=== PATIENT | female | born 1985 | race Caucasian/White ===

== ENCOUNTER 2020-07-16 08:04 | Outpatient (CLI) | payer OTHER, SELFPAY | END 2020-07-16 08:05 | disposition home or self-care (01) | LOC: ANHAUDIO 08:07 | PROVIDERS: PCP Nurse Practitioner Family; Visit Provider Nurse Practitioner Family | DX: H90.3 Sensorineural hearing loss, bilateral (principal) | CPT/HCPCS: 92537; 92540; 92546; 92557; 92567 ==

== ENCOUNTER 2024-06-17 08:46 | Outpatient (CLI) | payer OTHER, SELFPAY ==
--- OUTSIDE RECORDS SUMMARY | 2024-06-17 09:02 | XMS_ITS | Encounter Summary ---
Author Organization [facility] Address [address] [place] [address] Phone Care Team Providers Care Fitness Professional Name Role Phone Yolie Norma PINEDA, HAIR PREPARER Primary Care Provider [phone] Sadie Pruitt APRN, HAIR PREPARER Unavailable [phone] Encounter Details Date Type Department Care Team (Late st Contact Info) Description 07/22/2020 [facility] [address] [place] [id number] David Moore, DO [address] [place] [address] Pre-op testing (Primary Dx) Social History Tobacco Use Types Packs/Day Years Used Date Smoking Tobacco: Never Smokeless Tobacco: Never Alcohol Use Standard Drinks/Week Comments No 0 (1 standard drink = 0.6 oz pur e alcohol) Sexually Active Control Partners Comments Yes Comments No Sex and Gender Information Value Date Recorded Sex Assigned at Not on file Legal Sex Female 9:11 PM CDT Gender Identity Not on file Sexual Orientation Not on file COVID-19 Exposure Response Date Recorded In the last month, have you been in contact with someone who was confirmed or suspected to have Coronavirus / COVID-19? No / Unsure 07/21/2020 1:04 PM [facility] [employer] documented as of this encounter Plan of Treatment Not on file documented as of this encounter Results * (ABNORMAL) HEMOGLOBIN & HEMATOCRIT (H&H) (08/06/2020 8:42 AM CDT) HEMOGLOBIN (HGB) 11.8(L) 12.0 - 15.8 g/dL 08/06/2020 9:04 AM CDT [facility] HEMATOCRIT (HCT) 36.5 36.0 - 47.0 % 08/06/2020 9:04 AM CDT [facility] Blood Venipuncture / Unknown 08/06/2020 8:42 AM CDT 08/06/2020 9:02 AM CDT David Moore DO HEMATOLOGY ORDERABL ES Final Result [facility] [place] [address] documented in this encounter Visit Diagnoses Diagnosis Pre-op testing- Primary Preoperative examination, unspecified documented in this encounter Additional Health Concerns Infection Onset Date Last Indicated Resolved Time COVID - 19 01/05/2021 01/05/2021 01/25/2021 12:1 6 AM CDT C. difficile Rule-Out 03/14/2021 03/14/20212020 12:16 AM CDT COVID - 19 09/04/2021 09/04/2021 09/24/2021 12:1 6 AM CDT COVID - 19 Confirmed 11/22/2021 11/22/2021 022 12:16 AM CDT COVID - 19 04/16/2022 04/16/2022 04/26/2022 12:1 6 AM [facility] COVID - 19 06/26/2023 06/26/2023 06/26/2023 3:16 PM [facility] [employer] COVID - 19 Confirmed 06/26/2023 06/26/2023 024 12:16 AM [facility] [employer] documented as of this encounter Care Teams Fitness Professional Relationship Specialty Start Date End Date Norma Urbano, DIRECTOR GLOBAL DEVELOPMENT, HAIR PREPARER [address] [place] [address] PCP - General Family Medicine 08/07/18 Sadie Pruitt APRN, HAIR PREPARER #[address] [facility], [address] [place] [address] Nurse Practitioner Cardiology 07/20/23 documented as of this encounter
--- OUTSIDE RECORDS SUMMARY | 2024-06-17 09:02 | XMS_ITS | Referral Summary ---
Author Organization [facility] Address [address] [place] [address] Care Team Providers Care Income Tax Adjuster Name Role Phone YolieRaphaelNormashelia Freedman NP Primary Care Provider Encounters Date Type Department Care Team Description 05/27/2024 1:35 PM TOBACCO CURER Lab [address] Moderate persistent asthma without complication 05/27/2024 1:00 PM TOBACCO CURER Office Visit [facility] at [address] [place] [id number] Bakari Salinas DO Moderate persistent asthma without complication (Primary Dx); Chronic rhinosinusitis; Opacities of both lungs present on chest x-ray; Class 3 severe obesity due to excess calories with body mass index (BMI) of 60.0 to 69.9 in adult, unspecified whether serious comorbidity present (HCC) 04/16/2024 10:00 AM TOBACCO CURER Ancillary Procedure [facility] 04/16/2024 12:20 PM TOBACCO CURER Ancillary Procedure [facility] 04/13/2024 5:25 PM TOBACCO CURER Ancillary Procedure [facility] 03/27/2024 4:59 PM TOBACCO CURER - 03/27/2024 11:59 PM TOBACCO CURER Hospital Encounter [facility] [address] [place] [id number] Chronic cough Discharge Disposition: Discharge to home or self care from Last 3 Months Allergies Active Allergy Reactions Criticality Noted Date Comments Adhesive Hives,Itching,Rash Medium 11/30/2021 Hydroflex tape specifically Note: SKIN GETS RED, ITCHY AND BUBBLES UP Lamotrigine Hives,Itching,Rash Medium 10/05/2022 Note: DIZZINESS AND BLISTERS ON SCALP WHEN TAKING 25MG/DAY Silver Rash,Hives Medium 04/07/2015 Medications cholecalcifero l (VITAMIN D-3) 50,000 unit capsule Take 50,000 Units by mouth once a week. Active cetirizine (ZyrTEC) 10 mg tablet Take 1 tablet (10 mg total) by mouth daily 1 Active fluticasone propionate (FLONASE) 50 mcg/actuation nasal spray 1 Active albuterol HFA (PROVENTIL HFA,VENTOLIN HFA,PROAIR HFA) 90 mcg/actuation inhaler Inhale 2 puffs every 6 (six) hours as needed 7 Active albuterol 2.5 mg /3 mL (0.083 %) nebulizer solution albuterol sulfate 2.5 mg/3 mL (0.083 %) solution for nebulization Active pantoprazole DR (PROTONIX) 40 mg EC tablet 2 (two) times a day before breakfast and dinner 2 Active topiramate (TOPAMAX) 100 mg tablet topiramate 100 mg tablet TAKE 1 TABLET BY MOUTH TWICE DAILY Active traZODone (DESYREL) 100 mg tablet TAKE 1 AND 1/2 TABLETS BY MOUTH EVERY DAY AT BEDTIME 2 Active FLUoxetine (PROzac) 20 mg capsule 2 Active acetaminophen (TYLENOL) 325 mg tablet Take 2 tablets (650 mg total) by mouth every 6 (six) hours as needed 2 Active atenoloL (TENORMIN) 50 mg tablet Take 1 tablet (50 mg total) by mouth daily 2 Active cyclobenzaprin e (FLEXERIL) 10 mg tablet Take 1 tablet (10 mg total) by mouth daily as needed for muscle spasms 3 Active ARIPiprazole (ABILIFY) 5 mg tablet Take 1 tablet (5 mg total) by mouth daily Active celecoxib (CeleBREX) 100 mg capsule Take 1 capsule (100 mg total) by mouth 2 (two) times a day Active Victoza 3-Rajeev 0.6 mg/0.1 mL (18 mg/3 mL) injection Inject 1.8 mg under the skin daily Active montelukast (SINGULAIR) 10 mg tablet Take 1 tablet (10 mg total) by mouth nightly at bedtime Active ondansetron (ZOFRAN) 8 mg tablet Take 1 tablet (8 mg total) by mouth 2 (two) times a day as needed for nausea or vomiting 3 Active TRUEplus Pen Needle 31 gauge x 3/16 needle 3 Active prazosin (MINIPRESS) 2 mg capsule Take 1 capsule (2 mg total) by mouth nightly 3 Active pregabalin (LYRICA) 150 mg capsule Take 1 capsule (150 mg total) by mouth 2 (two) times a day Active amoxicillin 500 mg capsule Take 1 tablet/capsule (500 mg total) by mouth 3 (three) times a day [address] (CYMBALTA) 30 mg capsule Take 1 capsule (30 mg total) by mouth 2 (two) times a day 4 Active polyethylene glycol (MIRALAX) 17 gram/dose bulk powder Take 17 g by mouth as needed 4 Active traMADoL (ULTRAM) 50 mg tablet Take 1 tablet (50 mg total) by mouth every 8 (eight) hours as needed for pain 4 Active ARIPiprazole (ABILIFY) 2 mg tablet Take 1 tablet (2 mg total) by mouth daily 4 Active budesonide-for moteroL (SYMBICORT) 160-4.5 mcg/actuation inhaler Inhale 2 puffs 2 (two) times a day Rinse mouth with water after use. Do not swallow. 1 each 11 5 026 Active inhalational spacing device spacer 1 each daily 1 each 5 Active venlafaxine XR (EFFEXOR-XR) 150 mg 24 hr capsule Take 1 capsule (150 mg total) by mouth daily 0 025 Discontin ued(Alter nahid therapy) Active Problems Problem Noted Date Diagnosed Date Chronic rhinosinusitis 05/27/2024 Moderate persistent asthma without complication 05/27/2024 Class 3 severe obesity due t o excess calories with body mass index (BMI) of 60.0 to 69.9 in adult 05/27/2024 Heartburn 09/30/2021 Overview (09/30/2021): Added automatically from request for surgery [id number] Chronic pain in left shoulder 08/24/2020 Insomnia secondary to chronic pain 08/24/2020 Left arm weakness 08/24/2020 2-part displaced fracture of surgical neck of left humerus, initial encounter for closed fracture 11/29/2018 Vasovagal syncope 11/29/2018 Closed displaced oblique fracture of shaft of le ft humerus 11/29/2018 Migraine without aura and wi th status migrainosus, not intractable 08/16/2018 Anxiety disorder 08/16/2018 Depression 08/16/2018 Gastroesophageal reflux disease without esophagi tis 06/06/2018 Vitamin D deficiency 06/06/2018 Morbid obesity with BMI of 60.0-69.9, adult ([facility]) 02/14/2017 Assessment & Plan (03/09/2022 11:30 AM CDT): Continue to work with physical therapy on activities she can do at home. Continue small frequent meals, trying to avoid carbohydrates and increasing protein intake. We will encourage her to attend the monthly support group sessions. We will see her back at 1 month to reassess her progress Assessment & Plan (02/09/2022 9:23 AM CDT): We have discussed with the patient that as she is extremely limited by her mobility the only way she will lose weight will be with dietary modification. We have discussed keeping a food journal which she has done as recommended by the dietitian. She states she is only taking in a 1000 calories a day. We then discussed timing of eating. She states that she is not eating late at night and she is spacing these calories out throughout the day. She is been told that the stress from these recent events has been what made her gain all of the weight. Stress hormones may play a role but only taking in 1000 calories in a day makes it quite unlikely to be able to gain 15 lb. We will see her back next month to reassess. Assessment & Plan (10/25/2021 9:12 AM CDT): We have given her the preoperative diet and asked her to try and do this for at least a week during the month of October. Hopefully also now that the phentermine has been stopped for some time this will Stablize the weight regain and allow her to lose over the next month. We will see her back in November to reassess. Assessment & Plan (09/21/2021 8:00 AM CDT): We discussed we are still shooting for her to be at a BMI of under 60 prior to surgery. This shows her committed effort during her work up to ensure she is making appropriate lifestyle changes now so that she may continue them after surgery. We will see her back next month to reassess. Assessment & Plan (08/23/2021 2:40 PM CDT): The patient has done well the past 2 months having lost 13 lb. As we have talked with the patient before would like to see her BMI under 60. She will continue to work with the dietitian as we issue for this goal. Once this is the case we will then set her up for sleeve gastrectomy. Assessment & Plan (07/26/2021 11:36 AM TOBACCO CURER): The patient has done extremely well having lost 11 lb since last visit. Even though this is month 6 we discussed at the beginning that we want to see her BMI under 60 prior to surgery. She is in agreement and wants to continue to work on things to give her the best success after surgery. Continue her recent exercise regimen as she seen the success that she has had with it. Continue to make conscious efforts on meal selections. We will see her back next month to reassess. Assessment & Plan (06/30/2021 9:36 AM TOBACCO CURER): It seems like the patient has noticed her size getting smaller so it is always possible that she initially has been replacing some of the fat with muscle mass that does weigh more. We discussed not getting discouraged because any exercise she is doing will only help her long-term. Continue following the dietitians recommendations. We will see her back next month to reassess. Assessment & Plan (06/02/2021 9:12 AM TOBACCO CURER): She has consistently lost weight throughout these 1st few months. We again have talked about seen her BMI get below 60 prior to surgery. She is motivated and has a goal and site for herself. Even if it takes an extra month or so she was fine with that as long as she continues to make good progress going forward. Continue to work with the dietitian. She found some of the exercises quite useful when she just saw physical therapy recently. She will continue to work on these exercises as well. We will see her next month. Assessment & Plan (05/03/2021 10:36 AM TOBACCO CURER): Continue small frequent meals. Continue exercise regimen. Patient continues to show steady weight loss. I have discussed again that we still would like to see her BMI under 60 prior to intervention. She is in understanding. We will see her back next month Assessment & Plan (04/05/2021 10:48 AM TOBACCO CURER): The patient has done extremely well having lost 9 lb since last visit. I still believe the bypass is the better option for her but she wants to continue to see how she does with weight loss and her reflux. I again went to see her with a BMI under 60 and with no reflux symptoms off of medication to even consider proceeding. She continues to be in understanding. She will continue to exercise as tolerates and watching oral intake. Assessment & Plan (03/08/2021 8:59 AM CDT): Given their comorbidities and obesity the patient would be a good candidate for weight loss surgery. We have gone over options such as the bypass and sleeve gastrectomy. We have also discussed risks and benefits such as blood clots, staple line leak as well as new or worsening reflux symptoms. They are in understanding. Given her BMI over 60 and her reflux I do not think that the sleeve is a good option for her. However she is hesitant to go to [facility] as she does not have a ride and this would mean her would have to take off work. She would like to try and lose weight to get her BMI under 60. During that time frame if with the weight loss she is able to come off of her medication for reflux without any breakthrough symptoms I will consider doing a sleeve. She is in agreement. If however despite weight loss she still requires anti-reflux medication or she is unable to lose below 60 we will make a referral down town. During this time will have them seen by the dietitian and psych. As we get closer to the time of surgery we will set him up for an EGD to look for hiatal hernia, H pylori or other gastric pathology. We will see them back in 4 weeks. They are in understanding of the plan. We have gone over small frequent meals shooting for a goal calorie intake of around 1600 spread throughout 4-5 meals. We have discussed not eating late at night. We have discussed cardiovascular exercise. Greater than 15 minutes was spent in counseling the patient on diet and exercise with regards to her morbid obesity. Assessment & Plan (02/14/2017 6:17 PM CDT): Encourage a weight loss program such as Weight Watchers incorporating dietary changes and aerobic / weight-bearing exercise at least 4-5 times per week, for at least 30-45 minute sessions. Chronic migraine without aura 07/20/2016 Overview (10/13/2016): Chronic migraine without aura Benign hypertension 04/27/2008 Overview (08/24/2016): Benign Hypertension Assessment & Plan (05/03/2021 10:36 AM TOBACCO CURER): Continue current medical regimen Assessment & Plan (03/08/2021 9:00 AM CDT): Continue current medical regimen Atopic rhinitis 04/27/2008 Overview (08/24/2016): Allergic Rhinitis NOS Resolved Problems Problem Noted Date Diagnosed Date Resolved Date Morbid obesity ([facility]) 04/27/200804/2022 Overview (08/24/2016): MORBID OBESITY Assessment & Plan (12/13/2021 2:57 PM CDT): Given the discomfort she is having with her shoulder this will take priority. Will follow-up on her evaluation with Orthopedics. If they deem surgery is necessary we will just continue to see her on a monthly basis until they clear her for her sleeve gastrectomy. She is in understanding. Immunizations Name Administration Dates Next Due Hep B, Adolescent or Pediatric 06/03/1997 Influenza, Quadrivalent, Spl it, Intramuscular 02/24/2021,06/07/2018,03/07/2016 Influenza, Trivalent, IM (MDV) 03/30/2015 Social History Tobacco Use Types Packs/Day Years Used Date Smoking Tobacco: Never Cigarettes Smokeless Tobacco: Never Tobacco Cessation:Counseling Given: Not Answered Alcohol Use Standard Drinks/Week Comments No 0 (1 standard drink = 0.6 oz pur e alcohol) PHQ-2 Answer Date Recorded PHQ-2 Total Score (If total score is 3 or more points, staff should administer the PHQ-9) 4 08/24/2020 Comments No Sex and Gender Information Value Date Recorded Sex Assigned at Not on file Legal Sex Female 7:59 PM TOBACCO CURER Gender Identity Not on file Sexual Orientation Straight 11/28/2019 3: 40 PM CDT Occupation Industry Job Start Date Job End Date None Not on file Not on file Not on file Last Filed Vital Signs Vital Sign Reading Time Taken Comments Blood Pressure 159/108 05/27/2024 12:46 PM TOBACCO CURER Pulse 80 05/27/2024 12:46 PM TOBACCO CURER Temperature 36.2 ??C (97.2 ??F) 05/27/2024 12:[address] Respiratory Rate 18 01/30/2022 9:38 AM CDT Oxygen Saturation 98% 05/27/2024 12:46 PM TOBACCO CURER Inhaled Oxygen Concentration - - Weight 176 kg (388 lb 1.6 oz) 05/27/2024 12:46 P M TOBACCO CURER Height 170.2 cm (5' 7 ) 05/27/2024 12:46 PM TOBACCO CURER Body Mass Index 60.79 05/27/2024 12:46 PM TOBACCO CURER Plan of Treatment Not on file Procedures Procedure Name Priority Date/Time Associated Diagnosis Comments DIFFERENTIAL AUTO Routine 05/27/2024 1:3 1 PM TOBACCO CURER Moderate persistent asthma without complication CBC WITH AUTO DIFFERENTIAL Routine 05/27/2024 1:31 PM TOBACCO CURER Moderate persistent asthma without complication IGE Routine 05/27/2024 1:31 PM TOBACCO CURER Moderate persistent asthma without complication CT BODY OUTSIDE REFERENCE Routine 04/16/2024 12:20 PM TOBACCO CURER XR TRANSFER OF OUTSIDE FILMS Routine 04/16/2024 10:00 AM TOBACCO CURER XR TRANSFER OF OUTSIDE FILMS Routine 04/13/2024 5:25 PM TOBACCO CURER XR CHEST PA LATERAL 2 VIEWS Schedule MARIAA, Read MARIAA (Appt Today, Awaiting Results) 03/27/2024 5:04 PM TOBACCO CURER Chronic cough PAP AND HIGH RISK HPV, REFLEX TO GENOTYPING Routine 02/20/2023 11:10 AM CDT Screening for malignant neoplasm of the cervix from Last 3 Months or Most Recently Relevant to Health Maintenance Results * Differential, auto (05/27/2024 1:31 PM TOBACCO CURER) Neutrophil abs 5.0 1.5 - 6.5 K/cumm Imm gran abs 0.0 0.0 - 0.1 K/cumm [facility] Lymphocyte abs 2.7 0.8 - 3.3 K/cumm [facility] Monocyte abs 0.5 0.2 - 0.8 K/cumm [facility] Eosinophil abs 0.2 0.0 - 0.5 K/cumm [facility] Basophil abs 0.1 0.0 - 0.1 K/cumm [facility] Neutrophil pct 58.7 % [facility] Comment: Interpretive Data Percent cell count reference ranges are not reported, since discordance with absolute values may lead to misinterpretation of CBC data. Current Interpretive Data was last revised on 2017. Imm gran pct 0.4 % [facility] Comment: Interpretive Data Percent cell count reference ranges are not reported, since discordance with absolute values may lead to misinterpretation of CBC data. Current Interpretive Data was last revised on 2017. Lymphocyte pct 32.1 % [facility] Comment: Interpretive Data Percent cell count reference ranges are not reported, since discordance with absolute values may lead to misinterpretation of CBC data. Current Interpretive Data was last revised on 2017. Monocyte pct 5.3 % [facility] Comment: Interpretive Data Percent cell count reference ranges are not reported, since discordance with absolute values may lead to misinterpretation of CBC data. Current Interpretive Data was last revised on 2017. Eosinophil pct 2.4 % [facility] Comment: Interpretive Data Percent cell count reference ranges are not reported, since discordance with absolute values may lead to misinterpretation of CBC data. Current Interpretive Data was last revised on 2017. Basophil pct 1.1 % [facility] Comment: Interpretive Data Percent cell count reference ranges are not reported, since discordance with absolute values may lead to misinterpretation of CBC data. Current Interpretive Data was last revised on 2017. Blood 05/27/2024 1:31 PM TOBACCO CURER 05/27/2024 3:50 PM TOBACCO CURER Bakari Salinas DO LAB BLOOD ORDERABLES Rosa l Result [facility] [address] [facility] Department of Laboratories [place], [place] [id number] * CBC with auto differential (05/27/2024 1:31 PM TOBACCO CURER) WBC 8.5 3.8 - 9.9 K/cumm Hgb 13.7 11.9 - 15.5 g/dL [facility] Hct 40.6 35.6 - 45.5 % [facility] Plt 372 150 - 400 K/cumm [facility] MPV 9.6 9.1 - 12.3 fL [facility] RBC 4.67 3.90 - 5.20 M/cumm [facility] MCV 86.9 81.3 - 96.4 fL [facility] MCH 29.3 27.1 - 33.3 pg [facility] MCHC 33.7 32.3 - 35.7 g/dL [facility] RDW CV 13.7 11.1 - 14.9 % [facility] RDW SD 43.2 35.7 - 48.1 fL [facility] NRBC abs 0.00 0.00 - 0.01 K/cumm [facility] Blood 05/27/2024 1:31 PM TOBACCO CURER 05/27/2024 3:50 PM TOBACCO CURER us Bakari Salinas DO LAB BLOOD ORDERABLES Rosa l Result Performing Organization Address City/[facility] Co de Phone Number [facility] ([place]) 1 [facility] [place] [address] * IgE (05/27/2024 1:31 PM TOBACCO CURER) IgE 8 <=100 IUnits/mL Comment:Testing performed by : [facility], [address] [place] [address] Blood 05/27/2024 1:31 PM TOBACCO CURER 05/27/2024 6:16 PM TOBACCO CURER us Bakari Salinas DO LAB BLOOD ORDERABLES Rosa l Result Performing Organization Address [facility] de Phone Number LETITIA [facility] ([place]) 1 [facility] [place] [address] * CT Body Outside Reference (04/16/2024 12:20 PM TOBACCO CURER) Narrative [facility] - 05/20/2024 10:59 AM TOBACCO CURER This order has been auto-finalized and does not contain a result. us Not In File Miscellaneous IMG CT PROCEDURES Rosa l Result Performing Organization Address [facility] Co de Phone Number [facility] * XR Outside Reference (04/16/2024 10:00 AM TOBACCO CURER) Narrative [facility] - 05/20/2024 11:00 AM TOBACCO CURER This order has been auto-finalized and does not contain a result. us Not In File Miscellaneous IMG XR PROCEDURES Rosa l Result Performing Organization Address [facility] Co de Phone Number [facility] * XR Outside Reference (04/13/2024 5:25 PM TOBACCO CURER) Narrative [facility] - 05/20/2024 11:03 AM TOBACCO CURER This order has been auto-finalized and does not contain a result. us Not In File Miscellaneous IMG XR PROCEDURES Rosa l Result Performing Organization Address [facility] de Phone Number [facility] * XR Chest Pa Lateral 2 Views (03/27/2024 5:04 PM TOBACCO CURER) Anatomical Region Laterality Modality Body, Chest N/A Computed Radiogr aphy 03/27/2024 7:38 PM TOBACCO CURER Narrative 03/27/2024 7:39 PM TOBACCO CURER EXAM DESCRIPTION: XR CHEST PA LATERAL 2 VIEWS REASON FOR STUDY: cough ?? Cough , SOB, chest pain x 5 days ??H/o asthma ?? TECHNIQUE: There are 2 ??radiographic view(s) of the chest. COMPARISON: Prior exam 10/04/2021 FINDINGS: LUNGS: ??Pulmonary vascularity appears normal. ??No confluent infiltrate or effusion. ??Costophrenic angles are sharp. ?? HEART/MEDIASTINUM: ??Cardiac silhouette normal in size. Mediastinal and hilar contours appear normal. LINES/TUBES: ??None. BONES: ??Mild spondylosis thoracic spine. IMPRESSION: No acute cardiopulmonary abnormality. THIS IS AN ELECTRONICALLY VERIFIED FINAL REPORT 03/27/2024 7:39 PM - Electronically signed by ??Rivas Paulson M.D. MJ: EMILY D: ??03/27/2024 7:39 PM T: ??03/27/2024 7:39 PM Report ID: [id number] Reading Location: ??[id number] Procedure Note Rivas Paulson MD - 03/27/2024 EXAM DESCRIPTION: XR CHEST PA LATERAL 2 VIEWS REASON FOR STUDY: cough Cough , SOB, chest pain x 5 days H/o asthma TECHNIQUE: There are 2 radiographic view(s) of the chest. COMPARISON: Prior exam 10/04/2021 FINDINGS: LUNGS: Pulmonary vascularity appears normal. No confluent infiltrate or effusion. Costophrenic angles are sharp. HEART/MEDIASTINUM: Cardiac silhouette normal in size. Mediastinal andhilar contours appear normal. LINES/TUBES: None. BONES: Mild spondylosis thoracic spine. IMPRESSION: No acute cardiopulmonary abnormality. THIS IS AN ELECTRONICALLY VERIFIED FINAL REPORT 03/27/2024 7:39 PM - Electronically signed by Rivas Paulson M.D. MJ: EMILY Report ID: [id number] Reading Location: [place] [address] Vikas Best MD IMG XR PROCEDURES Final Result * Pap and High Risk HPV and Genotyping (Cytology Component) (02/20/2023 11:10 AM CDT) Thin prep (Pap test) 02/20/2023 11:10 AM CDT 02/20/2023 11:10 AM CDT Narrative PATHOLOGY CH - 02/26/2023 9:10 AM CDT [facility] Department of Pathology [address] [place] [id number] Final Report with Addendum Note to Patients: This report may contain a detailed description of human tissue sent by a health care provider to the laboratory for pathologic evaluation. The content of this report is essential for diagnosis and may provide important critical findings. This information may be unfamiliar to patients to review without a medical professional present. It is advised that the patient review this report in the presence of a health care provider who can answer questions and explain the details. Patient Name: ??KERI NORTON Address: ??[address] [place] [address], ?? [place], [place] ??[address] Gender: ??F : ??1985 (Age: 37) Service: ?? Location: ?? Hospital #: ??[id number] Patient Type: ?? SPECIMEN Taken: ??02/20/2023 Received: ??02/20/2023 Accessioned:: ??02/21/2023 Reported: ??02/26/2023 Physician(s): Anay Figueroa D.O. Diagnosis: SOURCE OF SPECIMEN ? SCREENING THIN PREP IMAGED PAP w/ HPV: STATEMENT OF ADEQUACY ?- Satisfactory for evaluation; endocervical/transformation zone component present ? GENERAL CATEGORIZATION: ?- Negative for intraepithelial lesion or malignancy ? GARY Bradley(ASCP) Report Electronically Reviewed and Signed Out By ??GARY Bradley(ASCP) ??02/26/2023 09:10:14Addenda: HPV Test Interpretation (Normal-Negative for High Risk HPV) HPV HR 16- Not detected HPV HR 18-Not detected HPV HR non 16/18- Not detected Interpretive Data Nucleic acid amplification for detection of high-risk Human Papilloma virus (HPV) is performed by the Pamela Babak 6800 HPV test. This assay specifically detects HPV- 16 and HPV-18 genotypes. The following HPV genotypes are detected as high-risk HPV: HPV-31, 33, 35, 39, 45, 51, 52, 56, 58, 59, 66, and 68. This assay has been approved by the [place] Food and Drug Administration for detection of HPV in cervical specimens collected by a physician using an endocervical brush/spatula or cervical broom and placed in the ThinPrep Pap Test PreservCyt collection containers. The performance characteristics of this test have been verified by the [facility] Molecular Infectious Disease laboratory. Correlate with reported cytology results, as applicable. Interpretive data last revised 22 GARY Marie(ASCP)Report Electronically Reviewed and Signed Out By ??GARY Marie(ASCP) ??02/23/2023 13:18:46 ?? Specimen(s) Received: A: SCREENING THIN PREP IMAGED PAP w/ HPV Clinical History: Last Menstrual Period: 02/17/2023 The Pap test is a screening test used to aid in the detection of cervical cancer and its precursors. ??It should not be the sole means by which malignant and premalignant lesions are diagnosed. ??Both false negative and false positive results may occur. ?? It also has poor sensitivity for the detection of endometrial lesions and should not be used to evaluate suspected endometrial abnormalities. ??For these reasons it is most important to obtain Pap tests at regular intervals. The performance characteristics of some immunohistochemical stains, fluorescence in-situ hybridization tests and immunophenotyping by flow cytometry cited in this report (if any) were determined by the Surgical Pathology Department at [facility] as part of an ongoing quality inspector program and in compliance with federally mandated regulations drawn from the Clinical Laboratory Improvement Act of 1988 (CLIA '88). ??Some of these tests rely on the use of analyte specific reagents and are subject to specific labeling requirements by the US Food and Drug Administration. ??Such diagnostic tests may only be performed in a facility that is certified by the Department of Health and Human Services as a high complexity laboratory under CLIA '88. The FDA has determined that such clearance or approval is not necessary. ??This test is used for clinical purposes. ??It should not be regarded as investigational or for research. ??Nevertheless, federal rules concerning the medical use of analyte specific reagents require that the following disclaimer be attached to the report: This test was developed and its performance characteristics determined by the Surgical Pathology Department [facility]. ??It has not been cleared or approved by the U. S. Food and Drug Administration. Chelita Prieto DO LAB CYTOLOGY ORDERABLES Final Result PATHOLOGY [address] [place] [address] from Last 3 Months or Most Recently Relevant to Health Maintenance Insurance [facility] Advance Directives For more information, please contact: [phone] * Full Code (Latest Code Status on File) Date Activated Date Inactivated Comments 10/18/2021 12:25 PM 10/18/2021 5:49 PM * Full Code Date Activated Date Inactivated Comments 10/18/2021 12:04 PM 10/18/2021 12:25 PM Care Teams Income Tax Adjuster Relationship Specialty Start Date End Date Urbano, Norma Freedman NP [address] [place] [id number] PCP - General 11/29/18
--- OUTSIDE RECORDS SUMMARY | 2024-06-17 09:02 | XMS_ITS | Clinical Summary ---
Author Organization [facility] Address [address] [place] [address] Care Team Providers Care Consumer Affairs Specialist Name Role Phone Yolie Norma Freedman NP Primary Care Provider Allergies Active Allergy Reactions Criticality Noted Date [...] (09/30/2021): Added automatically from request for surgery [id number] Chronic pain in left shoulder 08/24/2020 Insomnia [...] Morbid obesity with BMI of 60.0-69.9, adult ([facility]) 02/14/2017 Assessment & Plan (03/09/2022 [...] gastrectomy. Assessment & Plan (07/26/2021 11:36 AM FORMING MACHINE OPERATOR): The patient has done extremely well having [...] reassess. Assessment & Plan (06/30/2021 9:36 AM FORMING MACHINE OPERATOR): It seems like the patient has noticed [...] reassess. Assessment & Plan (06/02/2021 9:12 AM FORMING MACHINE OPERATOR): She has consistently lost weight throughout these [...] month. Assessment & Plan (05/03/2021 10:36 AM FORMING MACHINE OPERATOR): Continue small frequent meals. Continue exercise regimen. Patient continues to show steady weight loss. I have discussed again that we still would like to see her BMI under 60 prior to intervention. She is in understanding. We will see her back next month Assessment & Plan (04/05/2021 10:48 AM FORMING MACHINE OPERATOR): The patient has done extremely well having [...] However she is hesitant to go to [facility] as she does not have a ride [...] 60 we will make a referral down [facility]. During this time will have them seen [...] Hypertension Assessment & Plan (05/03/2021 10:36 AM FORMING MACHINE OPERATOR): Continue current medical regimen Assessment & Plan (03/08/2021 9:00 AM CDT): Continue current medical regimen Atopic rhinitis 04/27/2008 Overview (08/24/2016): Allergic Rhinitis NOS Resolved Problems Problem Noted Date Diagnosed Date Resolved Date Morbid obesity ([facility]/HCC) 04/27/200804/2022 Overview (08/24/2016): MORBID OBESITY Assessment & Plan (12/13/2021 2:57 PM CDT): Given the discomfort she is having with her shoulder this will take priority. Will follow-up on her evaluation with Orthopedics. If they deem surgery is necessary we will just continue to see her on a monthly basis until they clear her for her sleeve gastrectomy. She is in understanding. Encounters Date Type Department Care Team Description 05/27/2024 1:35 PM FORMING MACHINE OPERATOR Lab [address] Moderate persistent asthma without complication 05/27/2024 1:00 PM FORMING MACHINE OPERATOR Office Visit [facility] Pulmonary at [address] [place] [address] Bakari Salinas DO Moderate persistent asthma without complication (Primary Dx); Chronic rhinosinusitis; Opacities of both lungs present on chest x-ray; Class 3 severe obesity due to excess calories with body mass index (BMI) of 60.0 to 69.9 in adult, unspecified whether serious comorbidity present ([facility]) 04/16/2024 12:20 PM FORMING MACHINE OPERATOR Ancillary Procedure [facility] 04/16/2024 10:00 AM FORMING MACHINE OPERATOR Ancillary Procedure [facility] 04/13/2024 5:25 PM FORMING MACHINE OPERATOR Ancillary Procedure [facility] 03/27/2024 4:59 PM FORMING MACHINE OPERATOR - 03/27/2024 11:59 PM FORMING MACHINE OPERATOR Hospital Encounter [facility] [address] [place] [address] Chronic cough Discharge Disposition: Discharge to home or self care from Last 3 Months Immunizations Name Administration Dates Next Due Hep B, Adolescent or Pediatric 06/03/1997 Influenza, Quadrivalent, Spl it, Intramuscular 02/24/2021,06/07/2018,03/07/2016 Influenza, Trivalent, IM (MDV) 03/30/2015 Surgical History Surgery Date Site/Laterality Comments OTHER SURGICAL HISTORY 05/21/2007 - 05/20/2008 : OTHER SURGICAL HISTORY 05/21/2005 - 05/20/2006 : section LUMBAR PUNCTURE WO INJECTION , DIAGNOSTIC 05/04/2016 N/A SECTION CHOLECYSTECTOMY 05/21/2014 - 05/20/2015 OTHER SURGICAL HISTORY 05/21/2012 - 05/20/2013 section RHINOPLASTY ROTATOR CUFF REPAIR Left COLONOSCOPY FRACTURE SURGERY 11/29/2018 TUBAL LIGATION 02/11/2013 Medical History Medical History Date Comments Hx Other Medical 2007 ; Comm ents: reason for ...had prior Hx Other Medical 2005 ; Comm ents: reason for , would not dialate Hx Other Medical Headache, migra ine Anemia Anemia Hx Other Medical Cholecystectomy planned Stomach discomfort HTN (hypertension) GERD (gastroesophageal reflu x disease) Asthma Depression Osteoarthritis 01/30/2022 Acute medial meniscus tear Anxiety Osteoporosis Migraines Neuromuscular disorder (HCC) Sleep apnea Family History Medical History Relation Name Comments Anemia Brother Other Brother Spherocytosis; Anemia Father Vargas Arthritis Father Vargas Hypertension Father Vargas Other Father Vargas Spherocytosis; / hole in heart ; Lung cancer Maternal Grandfather Cancer -lung; Cause of : Cancer -lung Arthritis Maternal Grandmother Monica Colon cancer Maternal Grandmother Monica Diabetes Maternal Grandmother Monica Heart disease Maternal Grandmother Monica Hypertension Maternal Grandmother Monica Kidney disease Maternal Grandmother Monica Arthritis Mother Asthma Mother COPD Mother COPD; Colon cancer Mother Depression Mother Heart attack Mother's Brother Ankit Myocardial infarction; Breast cancer Mother's Sister Esther Cancer Mother's Sister Esther Lung cancer Mother's Sister Esther Anemia Paternal Grandfather Lung cancer Paternal Grandfather Cancer -lung; Cause of : Cancer -lung Other Paternal Grandfather Spheroc ytosis; Arthritis Paternal Grandmother Martita Breast cancer Paternal Grandmother Martita Cancer -breast; Alcohol abuse Sister Seda Asthma Son Dieter Depression Son Dieter Relation Name Status Comments Brother Father Vargas Maternal Grandfather (Age 70) Maternal Grandmother Monica Mother Mother's Brother Ankit Mother's Sister Esther Paternal Grandfather (Age 60) Paternal Grandmother Martita Sister Seda Son Dieter Social History Tobacco Use Types Packs/Day Years [...] on file Legal Sex Female 7:59 PM FORMING MACHINE OPERATOR Gender Identity Not on file Sexual Orientation Straight 11/28/2019 3: 40 PM CDT Occupation Industry Job Start Date Job End Date None Not on file Not on file Not on file Obstetrics History Para Term AB IAB SAB Ectopic Multiple Livin g Live Births 11 3 3 8 8 3 3 Date Outcome GA Total Labor Labor/2nd/3rd Weight Sex Type Anes PTL Monica A1 A5 Name Clin SAB SAB SAB SAB SAB SAB SAB SAB 2005 Term 38w 0d 3.799 kg (8 lb 6 oz) M CS-Un spec Living 2007 Term 40w 0d 3.714 kg (8 lb 3 oz) M CS-Un spec Living 2012 Term 38w 0d 3.374 kg (7 lb 7 oz) M CS-Un spec Last Filed Vital Signs Vital Sign Reading Time Taken Comments Blood Pressure 159/108 05/27/2024 12:46 PM FORMING MACHINE OPERATOR Pulse 80 05/27/2024 12:46 PM FORMING MACHINE OPERATOR Temperature 36.2 ??C (97.2 ??F) 05/27/2024 12:[address] Respiratory Rate 18 01/30/2022 9:38 AM CDT Oxygen Saturation 98% 05/27/2024 12:46 PM FORMING MACHINE OPERATOR Inhaled Oxygen Concentration - - Weight 176 kg (388 lb 1.6 oz) 05/27/2024 12:46 P M FORMING MACHINE OPERATOR Height 170.2 cm (5' 7 ) 05/27/2024 12:46 PM FORMING MACHINE OPERATOR Body Mass Index 60.79 05/27/2024 12:46 PM FORMING MACHINE OPERATOR Plan of Treatment Health Maintenance Due Date Last Done Comments Hepatitis C Screening 1985 Pneumococcal vaccine <65 (1 of 2 - PCV) 1992 DTaP/Tdap/Td Vaccine (1 - Tdap) 1997 Varicella Vaccines (1 of 2 - 13+ 2-dose series) 09/23/1999 Depression Screening 08/24/2021 08/24/2020, 08/24/2020, 05/17/2017 Covid-19 Vaccine (3 - season) 2024 07/25/2020, 07/23/2020 Cervical Cancer Screening 02/21/20242022, 02/20/2023, 05/17/2017 Regular Well Visit/Exam 18-64 02/21/2024 02/20/2023, 05/17/2017 Influenza Vaccine Completed 02/06/2024, , 06/07/2018, Additional history exists HPV Vaccines Aged Out No longer eligi ble based on patient's age to complete this topic Procedures Procedure Name Priority Date/Time Associated Diagnosis Comments DIFFERENTIAL AUTO Routine 05/27/2024 1:3 1 PM FORMING MACHINE OPERATOR Moderate persistent asthma without complication CBC WITH AUTO DIFFERENTIAL Routine 05/27/2024 1:31 PM FORMING MACHINE OPERATOR Moderate persistent asthma without complication IGE Routine 05/27/2024 1:31 PM FORMING MACHINE OPERATOR Moderate persistent asthma without complication CT BODY OUTSIDE REFERENCE Routine 04/16/2024 12:20 PM FORMING MACHINE OPERATOR XR TRANSFER OF OUTSIDE FILMS Routine 04/16/2024 10:00 AM FORMING MACHINE OPERATOR XR TRANSFER OF OUTSIDE FILMS Routine 04/13/2024 5:25 PM FORMING MACHINE OPERATOR XR CHEST PA LATERAL 2 VIEWS Schedule MARIAA, Read MARIAA (Appt Today, Awaiting Results) 03/27/2024 5:04 PM FORMING MACHINE OPERATOR Chronic cough PAP AND HIGH RISK HPV, REFLEX TO GENOTYPING Routine 02/20/2023 11:10 AM CDT Screening for malignant neoplasm of the cervix from Last 3 Months or Most Recently Relevant to Health Maintenance Results * Differential, auto (05/27/2024 1:31 PM FORMING MACHINE OPERATOR) Neutrophil abs 5.0 1.5 - 6.5 K/cumm [...] revised on 2017. Blood 05/27/2024 1:31 PM FORMING MACHINE OPERATOR 05/27/2024 3:50 PM FORMING MACHINE OPERATOR [facility] LAB BLOOD ORDERABLES Rosa l Result Performing Organization Address City/[facility] Co de Phone Number [facility] ([place]) 1 [facility] [address] [place] [address] * CBC with auto differential (05/27/2024 1:31 PM FORMING MACHINE OPERATOR) WBC 8.5 3.8 - 9.9 K/cumm Hgb [...] RDW CV 13.7 11.1 - 14.9 % [facility] RDW SD 43.2 35.7 - 48.1 fL [facility] NRBC abs 0.00 0.00 - 0.01 K/cumm [facility]) Blood 05/27/2024 1:31 PM FORMING MACHINE OPERATOR 05/27/2024 3:50 PM FORMING MACHINE OPERATOR [facility] LAB BLOOD ORDERABLES Rosa l Result Performing Organization Address City/[facility]/ZIP Co de Phone Number [facility] ([place]) 1 [facility] [place] [address] * IgE (05/27/2024 1:31 PM FORMING MACHINE OPERATOR) IgE 8 <=100 IUnits/mL Comment:Testing performed by : [facility], 1 [place]., [address] Blood 05/27/2024 1:31 PM FORMING MACHINE OPERATOR 05/27/2024 6:16 PM FORMING MACHINE OPERATOR us Bakari Salinas DO LAB BLOOD ORDERABLES Rosa l Result Performing Organization Address City/[facility]/ZIP Co de Phone Number [facility] ([place]) 1 [facility] [place] [address] * CT Body Outside Reference (04/16/2024 12:20 PM FORMING MACHINE OPERATOR) Narrative [facility] - 05/20/2024 10:59 AM FORMING MACHINE OPERATOR This order has been auto-finalized and does not contain a result. us Not In File Miscellaneous IMG CT PROCEDURES Rosa l Result Performing Organization Address [facility] Co de Phone Number [facility] * XR Outside Reference (04/16/2024 10:00 AM FORMING MACHINE OPERATOR) Narrative [facility] - 05/20/2024 11:00 AM FORMING MACHINE OPERATOR This order has been auto-finalized and does not contain a result. us Not In File Miscellaneous IMG XR PROCEDURES Rosa l Result Performing Organization Address City/[facility]/ZIP Co de Phone Number [facility] * XR Outside Reference (04/13/2024 5:25 PM FORMING MACHINE OPERATOR) Narrative [facility] - 05/20/2024 11:03 AM FORMING MACHINE OPERATOR This order has been auto-finalized and does not contain a result. us Not In File Miscellaneous IMG XR PROCEDURES Rosa l Result [facility] * XR Chest Pa Lateral 2 Views (03/27/2024 5:04 PM FORMING MACHINE OPERATOR) Anatomical Region Laterality Modality Body, Chest N/A Computed Radiogr aphy 03/27/2024 7:38 PM FORMING MACHINE OPERATOR Narrative 03/27/2024 7:39 PM FORMING MACHINE OPERATOR EXAM DESCRIPTION: XR CHEST PA LATERAL 2 [...] PM T: ??03/27/2024 7:39 PM Report ID: [id number] Reading Location: ??[id number] Procedure Note Rivas Paulson MD - 03/27/2024 [...] Rivas Paulson M.D. MJ: EMILY Report ID: [id number] Reading Location: [place] [address] Vikas Best MD IMG XR PROCEDURES Final Result * Pap and High Risk HPV and Genotyping (Cytology Component) (02/20/2023 11:10 AM CDT) Thin prep (Pap test) 02/20/2023 11:10 AM CDT 02/20/2023 11:10 AM CDT Narrative PATHOLOGY CH - 02/26/2023 9:10 AM CDT [facility] Department of Pathology [address] [place] [address] Final Report with Addendum Note to Patients: [...] the details. Patient Name: ??KERI NORTON Address: ??[address] [place] [address], ?? [place], [place] ??[address] Gender: ??F : ??1985 (Age: 37) Service: ?? Location: ?? Hospital #: ??[id number] Patient Type: ?? SPECIMEN Taken: ??02/20/2023 Received: [...] virus (HPV) is performed by the Pamela Babka 6800 HPV test. This assay specifically detects [...] this test have been verified by the [facility] Molecular Infectious Disease laboratory. Correlate with reported [...] determined by the Surgical Pathology Department at [facility] as part of an ongoing quality worker program and in compliance with federally mandated [...] characteristics determined by the Surgical Pathology Department [facility]. ??It has not been cleared or approved by the U. S. Food and Drug Administration. Chelita Prieto DO LAB CYTOLOGY ORDERABLES Final Result PATHOLOGY [address] [place] [address] from Last 3 Months or Most Recently Relevant to Health Maintenance Insurance [facility] [id number] [place] [address] Advance Directives For more information, please contact: [phone] * Full Code (Latest Code Status on File) Date Activated Date Inactivated Comments 10/18/2021 12:25 PM 10/18/2021 5:49 PM * Full Code Date Activated Date Inactivated Comments 10/18/2021 12:04 PM 10/18/2021 12:25 PM Care Teams Consumer Affairs Specialist Relationship Specialty Start Date End Date Yolie, Norma Freedman NP [address] [place] [address] PCP - General 11/29/18
--- OUTSIDE RECORDS SUMMARY | 2024-06-17 09:02 | XMS_ITS | Encounter Summary ---
Author Organization [facility] Address [address] [place] [address] Phone Care Team Providers Care Beater Out Leveling Machine Name Role Phone Urbano Norma PINEDA, CHEST PAINTING LEADER Primary Care Provider [phone] Sadie Pruitt APRN, CHEST PAINTING LEADER Unavailable [phone] Encounter Details Date Type Department Care Team (Latest Contact Info) Description 07/21/2020 [facility] [address] [place] [address] Pravin Gómez MD [address] [facility] [address] [place] [address] Pre-op testing (Primary Dx) Social History Tobacco [...] COVID-19? No / Unsure 07/21/2020 1:04 PM ADVERTISING COORDINATOR documented as of this encounter Plan of Treatment Not on file documented as of this encounter Results * SARS-COV-2 BY MOLECULAR (08/06/2020 8:44 AM CDT) SARSCOV2 NOT DETECTED (Referen ce Range for this test is Not Detected ) [facility] THERMOF[facility]ER FAST DX 08/07/2020 3:02 AM CDT [facility] Comment:This test was perfor med by a RT-PCR method. Other NASOPHARYNGEAL STRUCTURE / Unknown Non-Phlebotomy Collection / Unknown 08/06/2020 8:44 AM CDT 08/06/2020 9:01 AM CDT Narrative [facility] - 08/07/2020 3:02 AM CDT Authorized Fact Sheets about this test for providers and patients are available at: https://www.fda.gov/medical-devices/ijjyfruwb-ebarmvnkbk-pjhclvv-devices/emergen -us e-authorizations us Pravin Gómez MD MICROBIOLOGY - GENERAL ORDERA BLES Final Result [facility] [address] [place] [address], documented in this encounter Visit Diagnoses Diagnosis [...] 19 04/16/2022 04/16/2022 04/26/2022 12:1 6 AM ADVERTISING COORDINATOR COVID - 19 06/26/2023 06/26/2023 06/26/2023 3:16 PM ADVERTISING COORDINATOR COVID - 19 Confirmed 06/26/2023 06/26/2023 024 12:16 AM ADVERTISING COORDINATOR documented as of this encounter Care Teams Beater Out Leveling Machine Relationship Specialty Start Date End Date Norma Urbano APRN, CNP [address] [place] [address] PCP - General Family Medicine 08/07/18 Sadie Pruitt APRN, CNP [address] [facility], [address] [place] [address] Nurse Practitioner Cardiology 07/20/23 documented as of this encounter
--- OUTSIDE RECORDS SUMMARY | 2024-06-17 09:02 | XMS_ITS | Encounter Summary ---
Author Organization [facility] Address [address] [place] [address] Phone Care Team Providers Care Emulsification Operator Name Role Phone Urbano Norma PINEDA, RN ADVANCED Primary Care Provider [phone] Sadie Pruitt APRN, RN ADVANCED Unavailable [phone] Reason for Visit * Reason Comments Medication Refill Encounter Details Date Type Department Care Team (Late st Contact Info) Description 03/01/2021 Refill [facility] - [place] [address] [place] [phone] Loren Lua Allison, [facility] [address] [place] [address] Medication Refill Social History Tobacco Use Types Packs/Day Years [...] have Coronavirus / COVID-19? No / Unsure 02/15/2021 1:30 PM CDT documented as of this encounter Miscellaneous Notes * Telephone Encounter - Francisca Mirza RN - 03/01/2021 10:15 AM CDT Medication refilled and signed per [facility] chronic medication standing order for pediatric and adult patients. documented in this encounter Plan of Treatment Not on file documented as of this encounter Visit Diagnoses Not on filedocumented in this encounter Additional Health Concerns Infection Onset Date Last Indicated Resolved Time C. difficile Rule-Out 03/14/2021 03/14/20212020 12:16 AM CDT COVID - 19 09/04/2021 09/04/2021 09/24/2021 12:1 6 AM CDT COVID - 19 Confirmed 11/22/2021 11/22/2021 022 12:16 AM CDT COVID - 19 04/16/2022 04/16/2022 04/26/2022 12:1 6 AM CONSULTING SALES MANAGER COVID - 19 06/26/2023 06/26/2023 06/26/2023 3:16 PM CONSULTING SALES MANAGER COVID - 19 Confirmed 06/26/2023 06/26/2023 024 12:16 AM CONSULTING SALES MANAGER documented as of this encounter Care Teams Emulsification Operator Relationship Specialty Start Date End Date Norma Urbano APRN, RN ADVANCED [address] [place] [address] PCP - General Family Medicine 08/07/18 Sadie Pruitt APRN, RN ADVANCED [address] [facility], [address] [place] [address] Nurse Practitioner Cardiology 07/20/23 documented as of this encounter
--- OUTSIDE RECORDS SUMMARY | 2024-06-17 09:03 | XMS_ITS | Encounter Summary ---
Author Organization [facility] Address [address] [place] [address] Phone Care Team Providers Care Donor Relations Officer Name Role Phone Urbano Norma PINEDA, DRYWALL SANDER Primary Care Provider [phone] Sadie Pruitt APRN, DRYWALL SANDER Unavailable [phone] Reason for Visit * Reason Comments Medication Refill Encounter Details Date Type Department Care Team (Late st Contact Info) Description 12/04/2021 Refill [facility] - [facility] - [place] [address] [place] [phone] Loren Lua Allison, [facility] [address] [place] [address] Medication Refill Social History Tobacco Use Types [...] Exposure Response Date Recorded In the last 10 days, have yo u been in contact with someone who was confirmed or suspected to have Coronavirus/COVID-19? No / Unsure 11/28/2021 3:30 PM CDT documented as of this encounter Miscellaneous Notes * Telephone Encounter - Deedee Bethea - 12/12/2021 9:17 AM CDT Left message for pt to call back. * Telephone Encounter - Deedee Bethea - 12/09/2021 8:29 AM CDT Left message for pt to call back. * Telephone Encounter - Deedee Bethea - 12/07/2021 9:41 AM CDT Left message for pt to call back. * Telephone Encounter - Loren Lua PAC - 12/07/2021 8:21 AM CDT Medication is renewed for ninety days. She will need a follow-up in January for her annual med check or she may request further refills from her primary care provider. * Telephone Encounter - Les Tirado CMA - 12/06/2021 3:52 PM CDT Received fax, second refill request from [facility] in [place]. documented in this encounter Plan of Treatment Not on file documented as of this encounter Visit Diagnoses Not on filedocumented in this encounter Additional Health Concerns Infection Onset Date Last Indicated Resolved Time COVID - 19 Confirmed 11/22/2021 11/22/2021 022 12:16 AM CDT COVID - 19 04/16/2022 04/16/2022 04/26/2022 12:1 6 AM TRAVEL REGISTERED NURSE ICU COVID - 19 06/26/2023 06/26/202306/2606/26/2023 3:16 PM TRAVEL REGISTERED NURSE ICU COVID - 19 Confirmed 06/26/2023 06/26/2023 024 12:16 AM TRAVEL REGISTERED NURSE ICU documented as of this encounter Care Teams Donor Relations Officer Relationship Specialty Start Date End Date Norma Urbano APRN, DRYWALL SANDER [address] [place] [address] PCP - General Family Medicine 08/07/18 Sadie Pruitt APRN, DRYWALL SANDER [address] [facility], [address] [place] [address] Nurse Practitioner Cardiology 07/20/23 documented as of this encounter
--- OUTSIDE RECORDS SUMMARY | 2024-06-17 09:03 | XMS_ITS | Clinical Summary ---
Author Organization [facility] Address [address] [place] [address] Phone Care Team Providers Care Final Application Reviewer Name Role Phone Norma Urbano APRN, SURVEILLANCE OFFICER Primary Care Provider [phone] Sadie Pruitt APRN, SURVEILLANCE OFFICER Unavailable [phone] Allergies Active Allergy Reactions Criticality Noted Date Comments Lamotrigine Hives 01/02/2023 Silver Rash High 04/07/2015 Wound Dressing Adhesive Rash 06/10/2024 Medications albuterol (PROVENTIL HFA, VENTOLIN HFA) 108 (90 Base) MCG/ACT Aerosol Solution take 2 Puffs by inhalation every 6 hours as needed for Wheezing. 1 Inhaler 0 7 Active atenolol (TENORMIN) 25 MG Tablet Take 25 mg by mouth daily. Active cetirizine (ZYRTEC) 10 MG Tablet Take 10 mg by mouth daily. Active venlafaxine (EFFEXOR-XR) 150 MG CAPSULE SR 24 HR TAKE ONE CAPSULE BY MOUTH DAILY 90 Cap 3 0 Active Additional Information Patient taking differently: 225 mg, AT NIGHT, Reported on 07/21/2020 gabapentin (NEURONTIN) 100 MG CapsuleIndicati ons:Numbness and tingling of left hand TAKE 3 CAPSULES AT NIGHT 90 Cap 3 0 Active Additional Information Patient taking differently:, TAKE 3 CAPSULES AT NIGHT,Indications: Neuropathic Pain, Reported on 02/15/2021 VITAMIN D PO Take by mouth. ONCE A WEEK ON SUNDAY Active topiramate (TOPAMAX) 100 MG Tablet TAKE 1 TABLET BY MOUTH TWICE DAILY 60 Tab 3 0 Active Additional Information Patient taking differently: Indications: Migraine, Reported on 02/15/2021 Rizatriptan Benzoate 10 MG TabletIndicatio ns:Migraine without aura and with status migrainosus, not intractable TAKE 1 TABLET BY MOUTH ONCE NEEDED FOR HEADACHE FOR UP TO 1 DOSE, MAY REPEAT IN 2 HOURS IF NEEDED 10 Tab 3 0 Active meclizine (ANTIVERT) 25 MG Tablet TAKE 1 TABLET BY MOUTH THREE TIMES DAILY NEEDED 1 Active famotidine (PEPCID) 40 MG TabletIndicatio ns:Gastroesopha geal reflux disease without esophagitis Take 1 Tab by mouth 2 times daily. 180 Tab 3 1 Active Additional Information Patient not taking.Reported on 11/08/2021 traZODone (DESYREL) 50 MG Tablet nightly. Active buPROPion SR (WELLBUTRIN SR) 150 MG TABLET SR 12 HR Take 150 mg by mouth daily. Active metoclopramide (REGLAN) 10 MG TabletIndicatio ns:Gastroesopha geal reflux disease without esophagitis Take 1 Tablet by mouth 2 times daily. 180 Tablet 1 Active cholestyramine (QUESTRAN) 4 GM Pack Take 1 Packet by mouth daily after breakfast. 90 Packet 2 1 Active ondansetron (ZOFRAN) 4 MG Tablet Take 1 Tablet by mouth every 8 hours as needed for Nausea - 1st line. 12 Tablet 2 Active pantoprazole (PROTONIX) 40 MG Tablet Delayed Response TAKE 1 TABLET BY MOUTH TWICE DAILY 180 Tablet 2 Active diclofenac (VOLTAREN) 75 MG Tablet Delayed Response Take 1 Tablet by mouth 2 times daily. 30 Tablet 2 Active triamcinolone (ARISTOCORT) 0.5 % Cream Apply 1 Applicatorful 2 times daily. Application Site: bilateral arms 60 g 2 Active traMADol (ULTRAM) 50 MG TabletIndicatio ns:Lumbar strain, initial encounter Take 1 Tablet by mouth every 6 hours as needed for Moderate or more severe pain. 12 Tablet 2 Active naproxen (NAPROSYN) 500 MG Tablet Take 1 Tablet by mouth 2 times daily as needed for Mild or more severe pain. 20 Tablet 3 Active polyethylene glycol (GLYCOLAX, MIRALAX) 17 g Pack Take 1 Packet by mouth daily. Dissolve in 4-8 oz of liquid. 90 Packet 3 Active cyclobenzaprine (FLEXERIL) 10 MG TabletIndicatio ns:Muscle Spasm Take 1 Tablet by mouth 3 times daily as needed for Muscle spasms for up to 14 days. Indications: Muscle Spasm 30 Tablet 5 025 Active naproxen (NAPROSYN) 500 MG Tablet Take 1 Tablet by mouth 2 times daily as needed for Mild or more severe pain. 20 Tablet 5 Active Active Problems Problem Noted Date Diagnosed Date Gastroesophageal reflux disease without esophagi tis 01/28/2021 Numbness and tingling of left hand 03/14/2019 Closed fracture of shaft of left humerus 019 Migraine without aura and wi th status migrainosus, not intractable 08/16/2018 Anxiety disorder 08/16/2018 Depression 08/16/2018 Encounters Date Type Department Care Team Description 06/10/2024 4:44 PM [facility] - 06/10/2024 6:03 PM JUNIOR PROJECT MANAGER [facility] Emergency [address] [place] [address] Keri Thomas APRN, DORIE Acute pain of left knee Discharge Disposition: Discharged to home or Selfcare 06/10/2024 Travel 06/05/2024 10:53 AM JUNIOR PROJECT MANAGER - 06/05/2024 11:59 PM JUNIOR PROJECT MANAGER [facility] Diagnostic Radiology [address] [place] [address] Norma Urbano APRN, DORIE Discharge Disposition: Discharged to home or Selfcare 06/05/2024 Travel 06/05/2024 [facility]cribe [facility] [place] [facility] Admitting [address] [place] [address] Norma Urbano APRN, DORIE Left knee pain, unspecified chronicity (Primary Dx) 04/25/2024 7:56 AM JUNIOR PROJECT MANAGER - 04/25/2024 11:59 PM JUNIOR PROJECT MANAGER [facility] Nuclear Medicine [address] [place] [address] Codi Ponce APRN, DORIE Discharge Disposition: Discharged to home or Selfcare 04/25/2024 7:42 AM JUNIOR PROJECT MANAGER - 04/25/2024 7:55 AM JUNIOR PROJECT MANAGER [facility] Nuclear Medicine [address] [place] [address] Codi Ponce APRN, DORIE Discharge Disposition: Discharged to home or Selfcare 04/24/2024 8:00 AM JUNIOR PROJECT MANAGER - 04/24/2024 11:59 PM JUNIOR PROJECT MANAGER [facility] Nuclear Medicine [address] [place] [address] Codi Ponce APRN, SURVEILLANCE OFFICER Discharge Disposition: Discharged to home or Selfcare 04/24/2024 7:55 AM JUNIOR PROJECT MANAGER - 04/24/2024 7:59 AM JUNIOR PROJECT MANAGER [facility] Cardiology Stress [address] [place] [address] Codi Ponce APRN, DORIE Discharge Disposition: Discharged to home or Selfcare 04/23/2024 Travel 04/22/2024 6:49 PM JUNIOR PROJECT MANAGER - 04/22/2024 8:44 PM JUNIOR PROJECT MANAGER [facility] Emergency [address] [place] [address] Lenny Flores MD Chest pain, unspecified type Discharge Disposition: Discharged to home or Selfcare 04/22/2024 Travel 04/21/2024 Travel 04/16/2024 9:42 AM JUNIOR PROJECT MANAGER - 04/16/2024 1:59 PM JUNIOR PROJECT MANAGER [facility] [address] [place] [address] Mateo Kwong MD Other chest pain Discharge Disposition: Discharged to home or Selfcare 04/16/2024 Documentation Only [facility] [address] [place] [address] Isaura Ponce, PT 04/16/2024 Travel 04/16/2024 Telephone [facility] - [place] [address] [place] [phone] Sadie Pruitt, RN CLINICIAN, SURVEILLANCE OFFICER Advice Only 04/13/2024 4:16 PM JUNIOR PROJECT MANAGER - 04/13/2024 7:12 PM JUNIOR PROJECT MANAGER Emergency [facility] Emergency [address] [place] [address] Cristina Coles, JULIÁN Chest pain Discharge Disposition: Discharged to home or Selfcare 04/13/2024 Travel from Last 3 Months Immunizations Immunization Administration Dates Next Due Hepatitis B Vaccine, Pediatric/adolescent 1997 Influenza, Injectable, Quadrivalent 06/07/2018,1 Influenza, Seasonal, Injectable, Undefined 03/30 Family History Medical History Relation Name Comments Hypertension Father Other-comment Father REPUTURED DIVE RTICULITIS Cancer Maternal Aunt Colon Cancer Maternal Grandmother Cancer Mother Colon Cancer Mother CANCEROUS COLON POLYPS REMOVED Other-comment Mother GERD Breast Cancer Paternal Aunt Cancer Paternal Aunt Prostate Cancer Paternal Grandfather Breast Cancer Paternal Grandmother Other-comment Son GERD Relation Name Status Comments Father Alive Maternal Aunt lung, stomach Maternal Grandmother Mother Alive Paternal Aunt Paternal Grandfather Paternal Grandmother Son Social History Tobacco Use Types Packs/Day Years Used Date Smoking Tobacco: Never Smokeless Tobacco: Never Tobacco Cessation:Counseling Given: Not Answered Alcohol Use Standard Drinks/Week Comments No 0 (1 standard drink = 0.6 oz pur e alcohol) Sexually Active Control Partners Comments Yes Comments No Sex and Gender Information Value Date Recorded Sex Assigned at Not on file Legal Sex Female 9:11 PM CDT Gender Identity Not on file Sexual Orientation Not on file Last Filed Vital Signs Vital Sign Reading Time Taken Comments Blood Pressure 149/92 06/10/2024 4:41 PM JUNIOR PROJECT MANAGER Pulse 92 06/10/2024 4:40 PM JUNIOR PROJECT MANAGER Temperature 36.5 ??C (97.7 ??F) 06/10/2024 4:40 PM CS T Respiratory Rate 18 06/10/2024 4:40 PM JUNIOR PROJECT MANAGER Oxygen Saturation 100% 06/10/2024 4:40 PM JUNIOR PROJECT MANAGER Inhaled Oxygen Concentration - - Weight 177.4 kg (391 lb) 06/10/2024 4:40 PM JUNIOR PROJECT MANAGER Height 170.2 cm (5' 7 ) 06/10/2024 4:40 PM JUNIOR PROJECT MANAGER Body Mass Index 61.24 06/10/2024 4:40 PM JUNIOR PROJECT MANAGER Plan of Treatment Health Maintenance Due Date Last Done Comments Hepatitis C Virus (HCV) Screening 1985 TdaP Immunization 1985 Hepatitis B Immunization (2 of 3 - 3-dose series) 07/01/1997 06/03/1997 Pneumococcal Immunization Combined (1 of 2 - PCV) 2005 Pap Smear 09/23/2007 Cervical Cancer Screening (CCS) 2016 HPV/Cotest 2016 Influenza Immunization (#1) 01/20/202402/18, 02/02/2022, 02/24/2021, Additional history exists SARS-COV-2 Immunization ( season) 2024 07/25/2020, 07/23/2020 Respiratory Syncytial Virus (RSV) Immunization (Adult) (1 - 1-dose 75+ series) 2061 Meningococcal Immunization (ACWY) Aged Out No longer eligible based on patient's age to complete this topic Rotavirus Immunization Aged Out No lo nger eligible based on patient's age to complete this topic Medical Devices Implanted Type Area Instructional Design Consultant Device Identifier Shelf Expiration Date Model / Serial / Lot Screw Bone 5mm 45mm Ti Fthrd Lock Strl T2 Nail Sys Unv Sys - [id number] Implanted:Qty: 1 on 12/04/2018 [facility] IMPLANT Left: Arm [employer] 06/20/2023 [id number] / [id number] / [id number] Proximal Humeral Nail Long, Left Implanted:Qty: 1 on 12/04/2018 by Luciano Lopez MD at [facility] Left: Arm LIZZ / LIZZ ORTHO 07/18/2021 [id number] / [id number] / [id number] Procedures Procedure Name Priority Date/Time Associated Diagnosis Comments US LEFT DUPLEX LOWER EXTREMITY VEINS Stat with Interpretation 06/10/2024 5:28 PM JUNIOR PROJECT MANAGER XR KNEE 3 VIEWS LEFT Routine 06/05/2024 11:17 AM JUNIOR PROJECT MANAGER Left knee pain, unspecified chronicity NM CARD MULTI SPECT WITH WALL MOTION AND EJECTION FRACTION Routine 04/25/2024 8:06 AM JUNIOR PROJECT MANAGER Chest pain, unspecified type Palpitations Primary hypertension ADULT CV STRESS PHARMACOLOGIC W NUC MED Routine 04/24/2024 8:54 AM JUNIOR PROJECT MANAGER Chest pain, unspecified type Palpitations Primary hypertension GOLD TOP TUBE STAT 04/22/2024 7:28 PM JUNIOR PROJECT MANAGER CBC WITH AUTO DIFFERENTIAL STAT 04/22/2024 7:28 PM JUNIOR PROJECT MANAGER EXTRA TUBES STAT 04/22/2024 7:28 PM JUNIOR PROJECT MANAGER MAGNESIUM (MG) STAT 04/22/2024 7:28 PM JUNIOR PROJECT MANAGER TROPONIN I, HIGH SENSITIVITY (HSTRP) STAT 04/22/2024 7:28 PM JUNIOR PROJECT MANAGER CMP (COMPREHENSIVE METABOLIC PANEL) STAT 04/22/2024 7:28 PM JUNIOR PROJECT MANAGER COMPLETE BLOOD COUNT (CBC) WITH DIFF STAT 04/22/2024 7:28 PM JUNIOR PROJECT MANAGER EKG 12 LEAD STAT 04/22/2024 4:03 PM JUNIOR PROJECT MANAGER EKG SCAN 04/22/2024 12:00 AM JUNIOR PROJECT MANAGER TROPONIN I, HIGH SENSITIVITY (HSTRP) STAT 04/16/2024 12:[address] CHEST W/O CONTRAST Stat with Interpretation 04/16/2024 12:20 PM JUNIOR PROJECT MANAGER URINE DRUG SCREEN STAT 04/16/2024 11:52 AM JUNIOR PROJECT MANAGER UR TEST QUAL STAT 04/16/2024 11:26 AM JUNIOR PROJECT MANAGER URINALYSIS REFLEX IF INDICATED BY ABNORMAL RESULTS STAT 04/16/2024 11:26 AM JUNIOR PROJECT MANAGER CULTURE, URINE STAT 04/16/2024 11:26 AM JUNIOR PROJECT MANAGER EKG 12 LEAD STAT 04/16/2024 10:57 AM JUNIOR PROJECT MANAGER GOLD TOP TUBE STAT 04/16/2024 10:12 AM JUNIOR PROJECT MANAGER CBC WITH AUTO DIFFERENTIAL STAT 04/16/2024 10:12 AM JUNIOR PROJECT MANAGER EXTRA TUBES STAT 04/16/2024 10:12 AM JUNIOR PROJECT MANAGER CMP (COMPREHENSIVE METABOLIC PANEL) STAT 04/16/2024 10:12 AM JUNIOR PROJECT MANAGER COMPLETE BLOOD COUNT (CBC) WITH DIFF STAT 04/16/2024 10:12 AM JUNIOR PROJECT MANAGER TROPONIN I, HIGH SENSITIVITY (HSTRP) STAT 04/16/2024 10:12 AM JUNIOR PROJECT MANAGER D-DIMER STAT 04/16/2024 10:12 AM JUNIOR PROJECT MANAGER XR CHEST SINGLE VIEW PORTABLE STAT 04/16/2024 10:08 AM JUNIOR PROJECT MANAGER EKG 12 LEAD STAT 04/16/2024 9:51 AM JUNIOR PROJECT MANAGER EKG SCAN 04/16/2024 12:00 AM JUNIOR PROJECT MANAGER XR CHEST 2 VIEWS STAT 04/13/2024 5:24 PM JUNIOR PROJECT MANAGER TROPONIN I, HIGH SENSITIVITY (HSTRP) STAT 04/13/2024 4:54 PM JUNIOR PROJECT MANAGER GOLD TOP TUBE STAT 04/13/2024 2:41 PM JUNIOR PROJECT MANAGER BLUE TOP TUBE STAT 04/13/2024 2:41 PM JUNIOR PROJECT MANAGER CBC WITH AUTO DIFFERENTIAL STAT 04/13/2024 2:41 PM JUNIOR PROJECT MANAGER D-DIMER STAT 04/13/2024 2:41 PM JUNIOR PROJECT MANAGER MAGNESIUM (MG) STAT 04/13/2024 2:41 PM JUNIOR PROJECT MANAGER EXTRA TUBES STAT 04/13/2024 2:41 PM JUNIOR PROJECT MANAGER TROPONIN I, HIGH SENSITIVITY (HSTRP) STAT 04/13/2024 2:41 PM JUNIOR PROJECT MANAGER CMP (COMPREHENSIVE METABOLIC PANEL) STAT 04/13/2024 2:41 PM JUNIOR PROJECT MANAGER COMPLETE BLOOD COUNT (CBC) WITH DIFF STAT 04/13/2024 2:41 PM JUNIOR PROJECT MANAGER EKG 12 LEAD STAT 04/13/2024 2:11 PM JUNIOR PROJECT MANAGER EKG SCAN 04/13/2024 12:00 AM JUNIOR PROJECT MANAGER from Last 3 Months Results * US LEFT DUPLEX LOWER EXTREMITY VEINS (06/10/2024 5:28 PM JUNIOR PROJECT MANAGER) Anatomical Region Laterality Modality vascular Left Ultrasound 06/10/2024 5:34 PM JUNIOR PROJECT MANAGER Impressions 06/10/2024 5:37 PM JUNIOR PROJECT MANAGER IMPRESSION: ?? No left lower extremity deep venous thrombosis. ?? The left calf veins were not visualized. Narrative 06/10/2024 5:37 PM JUNIOR PROJECT MANAGER EXAM DESCRIPTION: ?? US LEFT DUPLEX LOWER EXTREMITY VEINS REASON FOR STUDY: ?? left leg pain and swelling for 6 days, worsening. ??Concern for deep vein thrombosis. TECHNIQUE: Duplex scan using the B-mode, spectral Doppler, and color-flow Doppler of the deep venous system of the ??left ??lower extremity was performed. Images stored on PACS. COMPARISON: ?? None FINDINGS: The common femoral, common femoral-saphenous vein confluence, visualized profunda femoral, superficial femoral, and popliteal veins are readily compressible with no intraluminal thrombus on cesar scale images. ??There is normal color and spectral Doppler signal, including augmentation. ??Greater saphenous vein appears patent. The calf veins were not visualized due to the patient's large body habitus. THIS IS AN ELECTRONICALLY VERIFIED FINAL REPORT 06/10/2024 5:34 PM - Electronically signed by ??Desmond Infante M.D. KT: [email or web address] D: ??06/10/2024 5:34 PM T: ??06/10/2024 5:34 PM Report ID: [id number] Reading Location: ??[id number] Procedure Note Desmond Infante MD - 06/10/2024 EXAM DESCRIPTION: US LEFT DUPLEX LOWER EXTREMITY VEINS REASON FOR STUDY: left leg pain and swelling for 6 days, worsening. Concern for deep vein thrombosis. TECHNIQUE: Duplex scan using the B-mode, spectral Doppler, and color-flow Doppler of the deep venous system of the left lower extremity was performed. Images stored on PACS. COMPARISON: None FINDINGS: The common femoral, common femoral-saphenous vein confluence, visualized profunda femoral, superficial femoral, and popliteal veins are readily compressible with no intraluminal thrombus on cesar scale images. There is normal color and spectral Doppler signal, including augmentation. Greater saphenous vein appears patent. The calf veins were not visualized due to the patient's large body habitus. THIS IS AN ELECTRONICALLY VERIFIED FINAL REPORT 06/10/2024 5:34 PM - Electronically signed by Desmond Infante M.D. KT: [email or web address] Report ID: [id number] Reading Location: [id number] IMPRESSION: No left lower extremity deep venous thrombosis. The left calf veins were not visualized. us Keri Thomas RN CLINICIAN, SURVEILLANCE OFFICER IMG US ORDERABLES Fin al Result * XR KNEE 3 VIEWS LEFT (06/05/2024 11:17 AM JUNIOR PROJECT MANAGER) Anatomical Region Laterality Modality LOWER EXTREMITY, knee Left Digital Ra diography 06/06/2024 1:16 PM JUNIOR PROJECT MANAGER Impressions 06/06/2024 1:18 PM JUNIOR PROJECT MANAGER IMPRESSION: Mild medial and patellofemoral bicompartmental left knee osteoarthritis with a trace effusion. Narrative 06/06/2024 1:18 PM JUNIOR PROJECT MANAGER EXAM DESCRIPTION: XR KNEE 3 VIEWS LEFT REASON FOR STUDY: pt states she has chronic LT knee pain dur to arthritis but the pain has been worse over the last 2-3 days. no injury or hx of surgery ? FINDINGS: Three views submitted with comparison 06/14/2022. No acute fracture. ??Alignment is normal. ??There is mild medial and patellofemoral bicompartmental left knee osteoarthritis. ??Trace knee effusion is present. THIS IS AN ELECTRONICALLY VERIFIED FINAL REPORT 06/06/2024 1:16 PM - Electronically signed by ??Rivas Flores M.D. MF: [id number] D: ??06/06/2024 1:16 PM T: ??06/06/2024 1:16 PM Report ID: [id number] Reading Location: ??[id number] Procedure Note Rivas Flores MD - 06/06/2024 EXAM DESCRIPTION: XR KNEE 3 VIEWS LEFT REASON FOR STUDY: pt states she has chronic LT knee pain dur to arthritis but the pain has been worse over the last 2-3 days. no injury or hx of surgery FINDINGS: Three views submitted with comparison 06/14/2022. No acute fracture. Alignment is normal. There is mild medial and patellofemoral bicompartmental left knee osteoarthritis. Trace knee effusion is present. THIS IS AN ELECTRONICALLY VERIFIED FINAL REPORT 06/06/2024 1:16 PM - Electronically signed by Rivas Flores M.D. MF: [id number] Report ID: [id number] Reading Location: [id number] IMPRESSION: Mild medial and patellofemoral bicompartmental left knee osteoarthritis with a trace effusion. us Norma Urbano RN CLINICIAN, SURVEILLANCE OFFICER IMG DIAGNOSTIC ORDERABLES Final Result * NM CARD MULTI SPECT WITH WALL MOTION AND EJECTION FRACTION (04/25/2024 8:06 AM JUNIOR PROJECT MANAGER) Anatomical Region Laterality Modality CARDIO N/A Nuclear Medicine 04/25/2024 9:01 AM JUNIOR PROJECT MANAGER Impressions 04/25/2024 9:03 AM JUNIOR PROJECT MANAGER IMPRESSION: 1. ?? Normal myocardial perfusion. 2. ?? No scintigraphic evidence of myocardial ischemia. 3. ?? Normal left ventricular ejection fraction poststress. 4. ?? Normal left ventricular wall motion. ?? Narrative 04/25/2024 9:03 AM JUNIOR PROJECT MANAGER EXAM DESCRIPTION: ?? NM CARD MULTI SPECT WITH WALL MOTION AND EJECTION FRACTION REASON FOR STUDY: CP substernal 3 weeks ?? RADIOPHARMACEUTICAL: Rest: ??33.4 ??mCi Tc-99m tetrofosmin via a ??left hand ??IV site. Stress: ??34.7 ??mCi Tc-99m tetrofosmin via a ??left hand ??IV site. TECHNIQUE: Standard myocardial perfusion SPECT images were obtained after resting tracer injection. ??Subsequently, an intravenous infusion of ??0.4 mg Lexiscan ??was performed. ??Standard myocardial perfusion SPECT images were obtained after tracer injection at the peak effect of the drug. COMPARISON: None. FINDINGS: Image quality is adequate at rest and adequate at stress. ?? There is attenuation artifact on the rotating projections. There are no perfusion abnormalities. The left ventricular cavity size is normal. Gated tomographic images demonstrate normal wall motion and wall thickening with a left ventricular ejection fraction of 58% poststress (normal >45%). ?? THIS IS AN ELECTRONICALLY VERIFIED FINAL REPORT 04/25/2024 9:01 AM - Electronically signed by ??Yoav Munoz M.D. CH: FELIPA D: ??04/25/2024 9:01 AM T: ??04/25/2024 9:01 AM Report ID: [id number] Reading Location: ??[id number] Procedure Note Yoav Munoz Jr., MD - 04/25/2024 EXAM DESCRIPTION: NM CARD MULTI SPECT WITH WALL MOTION AND EJECTION FRACTION REASON FOR STUDY: CP substernal 3 weeks RADIOPHARMACEUTICAL: Rest: 33.4 mCi Tc-99m tetrofosmin via a left hand IV site. Stress: 34.7 mCi Tc-99m tetrofosmin via a left hand IV site. TECHNIQUE: Standard myocardial perfusion SPECT images were obtained after resting tracer injection. Subsequently, an intravenous infusion of 0.4 mg Lexiscan was performed. Standard myocardial perfusion SPECT images were obtained after tracer injection at the peak effect of the drug. COMPARISON: None. FINDINGS: Image quality is adequate at rest and adequate at stress. There is attenuation artifact on the rotating projections. There are no perfusion abnormalities. The left ventricular cavity size is normal. Gated tomographic images demonstrate normal wall motion and wall thickening with a left ventricular ejection fraction of 58% poststress (normal >45%). THIS IS AN ELECTRONICALLY VERIFIED FINAL REPORT 04/25/2024 9:01 AM - Electronically signed by Yoav Munoz M.D. CH: FELIPA Report ID: [id number] Reading Location: [id number] IMPRESSION: 1. Normal myocardial perfusion. 2. No scintigraphic evidence of myocardial ischemia. 3. Normal left ventricular ejection fraction poststress. 4. Normal left ventricular wall motion. Codi Ponce APRN, SURVEILLANCE OFFICER IMG MT CARDIAC NI ORDERABLES Final Result * ADULT CV STRESS PHARMACOLOGIC W NUC MED (04/24/2024 8:54 AM JUNIOR PROJECT MANAGER) Anatomical Region Laterality Modality CARDIO N/A Electrocardiogra phy Narrative 04/24/2024 12:17 PM JUNIOR PROJECT MANAGER Non-Imaging Stress Test Patient Name ?VESNA Gilmore ? 1985 Patient ID (UPI) ?[id number] ? Indications: Chest pain. Study Date04/24/2024 Type of Study: Non-Imaging Stress Test: Pharmacological. Conclusions Summary - No Stress induced ischemia as per EKG criteria. - Nuclear images reported separately. Rest ECG Normal sinus rhythm. Normal ST segment response without evidence of ischemia. No ectopy or arrhythmia. Standing HR:63 bpmStanding BP:115/76 mmHg Results ECG Normal sinus rhythm. Normal ST segment response without evidence of ischemia. No ectopy or arrhythmia. Symptoms Shortness of breath. No chest pain. Stress Stress Type - Protocol:Pharmacologic - Lexiscan Protocol Peak HR: 85 bpm ?[id number] Peak BP: 123/89 mmHg Predicted HR: 183 bpm % of predicted HR: 46 Test Duration: 34:17 min Reason for Termination: Completed Stress Protocol:Pharmacologic - Lexiscan Protocol +-----+---------+-----+------+-----+ +------+--------+--+--------+----+ ----- -+ !Stage!Stage ?!Time !Dosage!Heart!Other ? !Dosage!Blood ?? !CP!Pain ?!Pain!Pain ??! !# ?!Name ? ! ? ! ?!Rate !Medication! ?!Pressure! ??!Location!Type!Action! +-----+---------+-----+------+-----+ +------+--------+--+--------+----+ ----- -+ !0.0 ??!PREINFSN !34:17! ?!56 ?? ! ?! ?!115/76 ??! ??! ?! ?! ?! ! ? !SUPINE ?? ! ? ! ?! ? ! ?! ?! ?! ??! ?! ?! ?! +-----+---------+-----+------+-----+ +------+--------+--+--------+----+ ----- -+ !1.0 ??!INFUSION !02:14! ?!75 ?? ! ?! ?!123/89 ??! ??! ?! ?! ?! ! ? !DOSE 1 ?? ! ? ! ?! ? ! ?! ?! ?! ??! ?! ?! ?! +-----+---------+-----+------+-----+ +------+--------+--+--------+----+ ----- -+ !2.0 ??!POSTINFSN!03:14! ?!65 ?? ! ?! ?!118/88 ??! ??! ?! ?! ?! +-----+---------+-----+------+-----+ +------+--------+--+--------+----+ ----- -+ Demographics Age ?38 ?Gender ?Female Race ? Height ?67 in. ?Weight ?391 lbs. ?BMI ? 61.24 kg/m^2 Stress Stapler Coil Unit Nurse ?Zaire Tabor ?M. Interpreting ? Vinson ? Referring Physician ?Neisha ?Physician Procedure Note Neisha Vinson MD - 04/24/2024 Non-Imaging Stress Test Patient Name VESNA Gilmore [place] 1985 Patient ID (UPI) [id number] Indications: Chest pain. Study Date04/24/2024 Type of Study: Non-Imaging Stress Test: Pharmacological. Conclusions Summary - No Stress induced ischemia as per EKG criteria. - Nuclear images reported separately. Rest ECG Normal sinus rhythm. Normal ST segment response without evidence of ischemia. No ectopy or arrhythmia. Standing HR:63 bpmStanding BP:115/76 mmHg Results ECG Normal sinus rhythm. Normal ST segment response without evidence of ischemia. No ectopy or arrhythmia. Symptoms Shortness of breath. No chest pain. Stress Stress Type - Protocol:Pharmacologic - Lexiscan Protocol Peak HR: 85 bpm [id number] Peak BP: 123/89 mmHg Predicted HR: 183 bpm % of predicted HR: 46 Test Duration: 34:17 min Reason for Termination: Completed Stress Protocol:Pharmacologic - Lexiscan Protocol +-----+---------+-----+------+-----+ +------+--------+--+--------+----+ ----- -+ !Stage!Stage !Time !Dosage!Heart!Other !Dosage!Blood !CP!Pain!Pain!Pain ! !# !Name ! ! !Rate !Medication! !Pressure!!Location!Type!Action! +-----+---------+-----+------+-----+ +------+--------+--+--------+----+ ----- -+ !0.0 !PREINFSN !34:17! !56 ! ! !115/76 ! !! ! ! ! !SUPINE ! ! ! ! ! ! ! !! ! ! +-----+---------+-----+------+-----+ +------+--------+--+--------+----+ ----- -+ !1.0 !INFUSION !02:14! !75 ! ! !123/89 ! !! ! ! ! !DOSE 1 ! ! ! ! ! ! ! !! ! ! +-----+---------+-----+------+-----+ +------+--------+--+--------+----+ ----- -+ !2.0 !POSTINFSN!03:14! !65 ! ! !118/88 ! !! ! ! +-----+---------+-----+------+-----+ +------+--------+--+--------+----+ ----- -+ Demographics Age 38 Gender Female Race Height 67 in. Weight 391 lbs. BMI 61.24 kg/m^2 Stress Stapler Coil Unit Nurse Zaire Lozano Vinson Referring Physician Neisha Physician Codi Ponce APRN, CNP IMG STRESS Final Result * TROPONIN I, HIGH SENSITIVITY (HSTRP) (04/22/2024 7:28 PM JUNIOR PROJECT MANAGER) Only the most recent of5 resultswithin the time period is included. [facility] TROPONIN I, HIGH SENSITIVITY- MACK <3 <=14 ng/L 04/22/2024 8:10 PM JUNIOR PROJECT MANAGER [facility] Comment: High-sensitivity troponin I results are reported in ng/L making the result appear to be 1,000 times higher than the contemporary troponin I value which is reported in ng/ml. Results from Mack. Blood Venipuncture / Unknown 04/22/2024 7:28 PM JUNIOR PROJECT MANAGER 04/22/2024 7:33 PM JUNIOR PROJECT MANAGER Bernice Devine MD CHEMISTRY ORDERABLES Final Re sult [facility] [address] [place] [address] * Gold Top Tube (04/22/2024 7:28 PM JUNIOR PROJECT MANAGER) Only the most recent of3 resultswithin the time period is included. Blood No Phlebotomy Charged / Unknown 04/22/2024 7:28 PM JUNIOR PROJECT MANAGER 04/22/2024 7:34 PM JUNIOR PROJECT MANAGER Lenny Flores MD CHEMISTRY ORDERABLES Final Result [facility] [address] [place] [address] * CBC with Auto Differential (04/22/2024 7:28 PM [facility]) Only the most recent of3 resultswithin the time period is included. WBC 9.31 4.00 - 12.00 10(3)/mcL 04/22/2024 7:36 PM [facility] RBC 4.58 3.80 - 5.30 10(6)/mcL 04/22/2024 7:36 PM [facility] HEMOGLOBIN (HGB) 13.5 12.0 - 15.8 g/dL 04/22/2024 7:36 PM [facility] HEMATOCRIT (HCT) 40.2 36.0 - 47.0 % 04/22/2024 7:36 PM [facility] MCV 87.8 82.0 - 96.0 fL 04/22/2024 7:36 PM [facility] MCH 29.5 26.0 - 34.0 pg 04/22/2024 7:36 PM [facility] MCHC 33.6 31.0 - 36.0 g/dL 04/22/2024 7:36 PM [facility] PLATELET COUNT 312 140 - 440 10(3)/mcL 04/22/2024 7:36 PM [facility] RDW 13.6 11.8 - 15.5 % 04/22/2024 7:36 PM [facility] MPV 9.8 9.7 - 12.4 fL 04/22/2024 7:36 PM [facility] NEUTROPHILS 62.0 47.0 - 73.0 % 04/22/2024 7:36 PM [facility] LYMPHOCYTES 29.3 18.0 - 42.0 % 04/22/2024 7:36 PM [facility] MONOCYTES 4.9 4.0 - 12.0 % 04/22/2024 7:36 PM [facility] EOSINOPHILS 3.2 0.0 - 5.0 % 04/22/2024 7:36 PM [facility] BASOPHILS 0.6 0.0 - 1.0 % 04/22/2024 7:36 PM JUNIOR PROJECT MANAGER [facility] ABSOLUTE NEUTROPHILS 5.76 1.60 - 7.70 10(3)/[facility] 04/22/2024 7:36 PM JUNIOR PROJECT MANAGER [facility] ABSOLUTE LYMPHOCYTES 2.73 1.30 - 3.20 10(3)/[facility] 04/22/2024 7:36 PM JUNIOR PROJECT MANAGER [facility] ABSOLUTE MONOCYTES 0.46 0.20 - 1.00 10(3)/[facility] 04/22/2024 7:36 PM JUNIOR PROJECT MANAGER [facility] ABSOLUTE EOSINOPHIL 0.30 0.00 - 0.40 10(3)/[facility] 04/22/2024 7:36 PM JUNIOR PROJECT MANAGER [facility] ABSOLUTE BASOPHILS 0.06 0.00 - 0.10 10(3)/[facility] 04/22/2024 7:36 PM JUNIOR PROJECT MANAGER [facility] NRBC PER 100 WBC 0 04/22/20 24 7:36 PM JUNIOR PROJECT MANAGER [facility] Blood Venipuncture / Unknown 04/22/2024 7:28 PM JUNIOR PROJECT MANAGER 04/22/2024 7:33 PM JUNIOR PROJECT MANAGER Bernice Devine MD HEMATOLOGY ORDERABLES Final R esult [facility] [address] [place] [address] * Magnesium (Mg) [id number] (04/22/2024 7:28 PM JUNIOR PROJECT MANAGER) Only the most recent of2 resultswithin the time period is included. MAGNESIUM 1.9 1.6 - 2.6 mg/dL 04/22/2024 8:05 PM JUNIOR PROJECT MANAGER [facility] Blood Venipuncture / Unknown 04/22/2024 7:28 PM JUNIOR PROJECT MANAGER 04/22/2024 7:33 PM JUNIOR PROJECT MANAGER Bernice Devine MD CHEMISTRY ORDERABLES Final Re sult [facility] [address] [place] [address] * (ABNORMAL) Comprehensive Metabolic Panel (Cmp) [id number] (04/22/2024 7:28 PM JUNIOR PROJECT MANAGER) Only the most recent of3 resultswithin the time period is included. SODIUM 141 136 - 145 mmol/L 04/22/2024 8:05 PM [facility] POTASSIUM 4.0 3.5 - 5.1 mmol/L 04/22/2024 8:05 PM [facility] CHLORIDE 107 98 - 107 mmol/L 04/22/2024 8:05 PM [facility] CO2, VENOUS 22 22 - 30 mmol/L 04/22/2024 8:05 PM [facility] ANION GAP 16.0 <18.0 mmol/L 04/22/2024 8:05 PM [facility] GLUCOSE 89 70 - 99 mg/dL 04/22/2024 8:05 PM [facility] BUN 9 5 - 18 mg/dL 04/22/2024 8:05 PM [facility] CREATININE, BLOOD 0.84 0.60 - 1.00 mg/dL 04/22/2024 8:05 PM [facility] BUN/CREATININE RATIO 11(L) 12 - 20 ratio 04/22/2024 8:05 PM [facility] TOTAL PROTEIN 7.8 6.3 - 8.2 g/dL 04/22/2024 8:05 PM [facility] ALBUMIN 4.3 3.5 - 5.0 g/dL 04/22/2024 8:05 PM [facility] A/G RATIO 1.2 1.0 - 2.2 04/22/2024 8:05 PM [facility] CALCIUM 9.8 8.7 - 10.5 mg/dL 04/22/2024 8:05 PM [facility] T BILI 0.7 0.2 - 1.2 mg/dL 04/22/2024 8:05 PM JUNIOR PROJECT MANAGER [facility] SGOT (AST) 23 5 - 34 U/L 04/22/2024 8:05 PM [facility] SGPT (ALT) 20 0 - 55 U/L 04/22/2024 8:05 PM [facility] ALKALINE PHOSPHATASE 66 40 - 150 U/L 04/22/2024 8:05 PM JUNIOR PROJECT MANAGER [facility] GFR, ESTIMATED >60 >=60 04/22/2024 8:05 PM JUNIOR PROJECT MANAGER [facility] Comment: Creatinine Clearance is the preferred criteria for selecting drug dose adjustments in renally impaired patients. ??The GFR is provided as additional pertinent clinical information. GFR is reported in mL/min/1.73 sq m. Calculation based on the Chronic Kidney Disease Epidemiology Collaboration (CKD- EPI) equation refit without adjustment for race. GFR, EST. >60 >=60 024 8:05 PM JUNIOR PROJECT MANAGER [facility] GFR, EST. NONAFRICAN >60 >=60 04/22/2024 8:05 PM [facility] Blood Venipuncture / Unknown 04/22/2024 7:28 PM JUNIOR PROJECT MANAGER 04/22/2024 7:33 PM JUNIOR PROJECT MANAGER us Bernice Devine MD CHEMISTRY ORDERABLES Final Re sult [facility] [address] [place] [address] * EKG 12 LEAD (04/22/2024 4:03 PM JUNIOR PROJECT MANAGER) Only the most recent of4 resultswithin the time period is included. Ventricular Rate 61 BPM EXTERNAL EKG Atrial Rate 61 BPM EXTERNAL EKG P-R Interval 176 ms EXTERNAL EKG QRS Duration 90 ms EXTERNAL EKG Q-T Duration 438 ms EXTERNAL EKG QTC CALCULATION 440 ms EXTERNAL EKG P Ransom 51 degrees EXTERNAL EKG R Ransom 5 degrees EXTERNAL EKG T Ransom 4 degrees EXTERNAL EKG 04/22/2024 4:03 PM JUNIOR PROJECT MANAGER Impressions EXTERNAL EKG - 04/26/2024 10:00 AM JUNIOR PROJECT MANAGER Normal sinus rhythm Normal ECG When compared with ECG of 16-APR-2024 10:57, No significant change was found Confirmed by Ayah Banuelos ([id number]) on 04/26/2024 10:00:42 AM Narrative Procedure Note Ayah Banuelos MD - 04/26/2024 IMPRESSION: Normal sinus rhythm Normal ECG When compared with ECG of 16-APR-2024 10:57, No significant change was found Confirmed by Ayah Banuelos ([id number]) on 04/26/2024 10:00:42 AM Bernice Devine MD IMG ECG ORDERABLES Final Resu lt Performing Organization Address City/[facility] Co de Phone Number EXTERNAL EKG * EKG SCAN (04/22/2024 12:00 AM JUNIOR PROJECT MANAGER) Only the most recent of3 resultswithin the time period is included. 04/22/2024 us Provider Scan IMG ECG ORDERABLES Final Result Performing Organization Address [facility] Co de Phone Number RESULTING AGENCY * CT CHEST W/O CONTRAST (04/16/2024 12:20 PM JUNIOR PROJECT MANAGER) Anatomical Region Laterality Modality Chest N/A Computed Tomogra phy 04/16/2024 1:22 PM JUNIOR PROJECT MANAGER Impressions 04/16/2024 1:24 PM JUNIOR PROJECT MANAGER IMPRESSION: No acute findings. Narrative 04/16/2024 1:24 PM JUNIOR PROJECT MANAGER EXAM DESCRIPTION: ?? CT CHEST W/O CONTRAST REASON FOR STUDY: ?? C/o substernal chest pain that radiates around her flank and into her back and occasionally gets pain in her left shoulder as well. H/o HTN ?? TECHNIQUE: CT scan of the chest performed without intravenous contrast using helical scanning technique. Reconstructed coronal and sagittal MPR images reviewed. ??All images stored on PACS. ??Automated exposure control was used as a dose optimization technique for this examination. COMPARISON: ?? Correlation with chest radiograph 04/16/2024 REFERENCE: Per ACR white paper recommendations, unless otherwise specified no follow-up imaging is recommended for incidental renal and adrenal lesions per consensus recommendations based on imaging criteria. Further lab evaluation could be pursued based on clinical findings. FINDINGS: The sensitivity for detection of solid visceral lesions is diminished without the use of intravenous contrast. HEART: ??The heart appears upper limits of normal in size. ??No pericardial effusion. CORONARY ARTERY CALCIFICATION: ??Present. MEDIASTINUM/ZACHERY: ?? No abnormal lymph nodes by size criteria. ??No thoracic aortic aneurysm. LUNGS/PLEURA: ?? No nodules or masses. No pneumonia. ??No pleural effusion or pneumothorax. ?? The central airways are clear. UPPER ABDOMEN: ?? No acute findings. ??Prior cholecystectomy. MUSCULOSKELETAL: ?? No acute findings. OTHER: ?? No other significant abnormality. THIS IS AN ELECTRONICALLY VERIFIED FINAL REPORT 04/16/2024 1:22 PM - Electronically signed by ??Lloyd Tello M.D. JR: D: ??04/16/2024 1:22 PM T: ??04/16/2024 1:22 PM Report ID: [id number] Reading Location: ??[id number] Procedure Note Lloyd Tello MD - 04/16/2024 EXAM DESCRIPTION: CT CHEST W/O CONTRAST REASON FOR STUDY: C/o substernal chest pain that radiates around her flank and into her back and occasionally gets pain in her left shoulder as well. H/o HTN TECHNIQUE: CT scan of the chest performed without intravenous contrast using helical scanning technique. Reconstructed coronal and sagittal MPR images reviewed. All images stored on PACS. Automated exposure control was used as a dose optimization technique for this examination. COMPARISON: Correlation with chest radiograph 04/16/2024 REFERENCE: Per ACR white paper recommendations, unless otherwise specified no follow-up imaging is recommended for incidental renal and adrenal lesions per consensus recommendations based on imaging criteria. Further lab evaluation could be pursued based on clinical findings. FINDINGS: The sensitivity for detection of solid visceral lesions is diminished without the use of intravenous contrast. HEART: The heart appears upper limits of normal in size. No pericardial effusion. CORONARY ARTERY CALCIFICATION: Present. MEDIASTINUM/ZACHERY: No abnormal lymph nodes by size criteria. No thoracic aortic aneurysm. LUNGS/PLEURA: No nodules or masses. No pneumonia. No pleural effusion or pneumothorax. The central airways are clear. UPPER ABDOMEN: No acute findings. Prior cholecystectomy. MUSCULOSKELETAL: No acute findings. OTHER: No other significant abnormality. THIS IS AN ELECTRONICALLY VERIFIED FINAL REPORT 04/16/2024 1:22 PM - Electronically signed by Lloyd Tello M.D. JR: Report ID: [id number] Reading Location: [place] [address] IMPRESSION: No acute findings. us Mateo Kwong MD IMG CT ORDERABLES Final Result * Urine Drug Screen (04/16/2024 11:52 AM JUNIOR PROJECT MANAGER) UR AMPHETAMINE NON DETECTED NON DETECTED 04/16/2024 12:30 PM JUNIOR PROJECT MANAGER [facility] Comment: FOR MEDICAL USE ONLY. CUTOFF CONCENTRATION FOR DETECTED RESULT: AMPHETAMINE: ??500 NG/ML UR BENZODIAZEPINES NON DETECTED NON DETECTED 04/16/2024 12:30 PM JUNIOR PROJECT MANAGER [facility] Comment: FOR MEDICAL USE ONLY. CUTOFF CONCENTRATION FOR DETECTED RESULT: BENZODIAZAPINE: ??200 NG/ML UR COCAINE METABOLITE NON DETECTED NON DETECTED 04/16/2024 12:30 PM JUNIOR PROJECT MANAGER [facility] Comment: FOR MEDICAL USE ONLY. CUTOFF CONCENTRATION FOR DETECTED RESULT: COCAINE: ??150 NG/ML UR OPIATES NON DETECTED NON DETECTED 04/16/2024 12:30 PM JUNIOR PROJECT MANAGER [facility] Comment: FOR MEDICAL USE ONLY. CUTOFF CONCENTRATION FOR DETECTED RESULT: OPIATES: ? 300 NG/ML UR PHENCYCLIDINE NON DETECTED NON DETECTED 04/16/2024 12:30 PM JUNIOR PROJECT MANAGER [facility] Comment: FOR MEDICAL USE ONLY. CUTOFF CONCENTRATION FOR DETECTED RESULT: PCP: ? 25 NG/ML UR CANNABINOID NON DETECTED NON DETECTED 04/16/2024 12:30 PM JUNIOR PROJECT MANAGER [facility] Comment: FOR MEDICAL USE ONLY. CUTOFF CONCENTRATION FOR DETECTED RESULT: THC (MARIJUANA): 50 NG/ML UR BARBITURATE NON DETECTED NON DETECTED 04/16/2024 12:30 PM JUNIOR PROJECT MANAGER [facility] Comment: FOR MEDICAL USE ONLY. CUTOFF CONCENTRATION FOR DETECTED RESULT: BARBITUATES: ? 200 NG/ML UR FENTANYL NON DETECTED NON DETECTED 04/16/2024 12:30 PM JUNIOR PROJECT MANAGER [facility] Comment: FOR MEDICAL USE ONLY. CUTOFF CONCENTRATION FOR DETECTED RESULT: FENTANYL: ??1.0 NG/ML Urine Non-Phlebotomy Collection / Unknown 04/16/2024 11:52 AM JUNIOR PROJECT MANAGER 04/16/2024 12:02 PM JUNIOR PROJECT MANAGER us Mateo Kwong MD URINE ORDERABLES Final Result [facility] [address] [place] [address] * (ABNORMAL) Urinalysis w/ Reflex (04/16/2024 11:26 AM JUNIOR PROJECT MANAGER) SPECIFIC GRAVITY 1.025 1.003 - 1.030 04/16/2024 11:50 AM JUNIOR PROJECT MANAGER [facility] URINE PH 5.0 5.0 - 9.0 04/16/2024 11:50 AM JUNIOR PROJECT MANAGER [facility] WBC ESTERASE 100 /uL(A) Negative 04/16/2024 11:50 AM JUNIOR PROJECT MANAGER [facility] NITRITE Negative Negative 04/16/2024 11:50 AM JUNIOR PROJECT MANAGER [facility] PROTEIN, RANDOM URINE 15 mg/dL(A) Negative 04/16/2024 11:50 AM JUNIOR PROJECT MANAGER [facility] URINE GLUCOSE, QUAL Negative Negative 04/16/2024 11:50 AM JUNIOR PROJECT MANAGER [facility] URINE KETONES Negative Negative 04/16/2024 11:50 AM JUNIOR PROJECT MANAGER [facility] UROBILINOGEN Normal Normal mg/dL 04/16/2024 11:50 AM [facility] URINE BLOOD 10 /uL(A) Negative sabino/ul 04/16/2024 11:50 AM JUNIOR PROJECT MANAGER [facility] URINALYSIS COLOR Dark Yellow 024 11:50 AM JUNIOR PROJECT MANAGER [facility] URINALYSIS CLARITY Slightly Cloudy 04/16/2024 11:50 AM JUNIOR PROJECT MANAGER [facility] WBC (Urine) 6-10(A) Negative, 0-5 /hpf 04/16/2024 11:50 AM JUNIOR PROJECT MANAGER [facility] URINE RBC'S 0-2 Negative, 0-2 /hpf 04/16/2024 11:50 AM JUNIOR PROJECT MANAGER [facility] EPITHELIAL CELLS Large amount squamous /lpf 04/16/2024 11:50 AM JUNIOR PROJECT MANAGER [facility] BACTERIA, URINE Many(A) Negative /hpf 04/16/2024 11:50 AM JUNIOR PROJECT MANAGER [facility] URINE MUCOUS Few 04/16/2024 11:50 AM JUNIOR PROJECT MANAGER [facility] Urine URINE SPECIMEN / Unknown Non-Phlebotomy Collection / Unknown 04/16/2024 11:26 AM JUNIOR PROJECT MANAGER 04/16/2024 11:26 AM JUNIOR PROJECT MANAGER us Mateo Kwong MD URINE ORDERABLES Final Result [facility] [address] [place] [address] * Ur Test Qual (04/16/2024 11:26 AM JUNIOR PROJECT MANAGER) PREG TEST,MONOCLONA L Negative 04/16/2024 11:52 AM JUNIOR PROJECT MANAGER [facility] Urine URINE SPECIMEN / Unknown Non-Phlebotomy Collection / Unknown 04/16/2024 11:26 AM JUNIOR PROJECT MANAGER 04/16/2024 11:26 AM JUNIOR PROJECT MANAGER us Mateo Kwong MD URINE ORDERABLES Final Result [facility] [address] [place] [address] * Culture, Urine (04/16/2024 11:26 AM JUNIOR PROJECT MANAGER) CULTURE RESULTS Mixed Growth of One or More Distal Urethral Contaminants 04/17/2024 8:24 PM JUNIOR PROJECT MANAGER [facility] Urine URINE SPECIMEN / Unknown Non-Phlebotomy Collection / Unknown 04/16/2024 11:26 AM JUNIOR PROJECT MANAGER 04/16/2024 11:26 AM JUNIOR PROJECT MANAGER Mateo Kwong MD MICROBIOLOGY - GENERAL ORDERABLE S Final Result Performing Organization Address City/[facility] Co de Phone Number [facility] [address] [place] [address], [place] * D-DIMER [id number] (04/16/2024 10:12 AM JUNIOR PROJECT MANAGER) Only the most recent of2 resultswithin the time period is included. Pathologist [facility] D DIMER <=0.27 <0.50 mcg/mL FEU 04/16/2024 10:49 AM JUNIOR PROJECT MANAGER [facility] Blood Venipuncture / Unknown 04/16/2024 10:12 AM JUNIOR PROJECT MANAGER 04/16/2024 10:21 AM JUNIOR PROJECT MANAGER Narrative [facility] - 04/16/2024 10:49 AM JUNIOR PROJECT MANAGER The FDA has approved this method to exclude the diagnosis of DVT and/or PE at the cutoff value of <0.50 mcg/mL FEU. us Mateo Kwong MD HEMATOLOGY ORDERABLES Final Resu lt Performing Organization Address City/[facility]/ZIP Co de Phone Number [facility] [address] [place] [address] * XR CHEST SINGLE VIEW PORTABLE (04/16/2024 10:08 AM JUNIOR PROJECT MANAGER) Anatomical Region Laterality Modality Chest N/A Digital Radiogra phy 04/16/2024 10:4 3 AM JUNIOR PROJECT MANAGER Impressions 04/16/2024 10:46 AM JUNIOR PROJECT MANAGER IMPRESSION: Mild patchy left basilar airspace opacities, which may be related to subsegmental atelectasis versus developing airspace disease. Cardiomegaly. Narrative 04/16/2024 10:46 AM JUNIOR PROJECT MANAGER EXAM DESCRIPTION: XR CHEST SINGLE VIEW PORTABLE REASON FOR STUDY: Chest pain, feel clammy, SOB, and nauseated since sunday. Hx. Asthma, HTN ?? TECHNIQUE: Single frontal ??radiographic view(s) of the chest. COMPARISON: 04/13/2024 FINDINGS: There is cardiomegaly. ??The pulmonary vasculature and mediastinum are grossly stable. ??There is no definite evidence of a pneumothorax. ??There is no definite evidence of pleural effusion. ?? There are mild patchy left basilar airspace opacities. The osseous structures are acutely grossly stable. THIS IS AN ELECTRONICALLY VERIFIED FINAL REPORT 04/16/2024 10:43 AM - Electronically signed by ??Brock Davison D.O. PS: PS D: ??04/16/2024 10:43 AM T: ??04/16/2024 10:43 AM Report ID: [id number] Reading Location: ??[id number] Procedure Note Brock Davison DO - 04/16/2024 EXAM DESCRIPTION: XR CHEST SINGLE VIEW PORTABLE REASON FOR STUDY: Chest pain, feel clammy, SOB, and nauseated since sunday. Hx. Asthma, HTN TECHNIQUE: Single frontal radiographic view(s) of the chest. COMPARISON: 04/13/2024 FINDINGS: There is cardiomegaly. The pulmonary vasculature and mediastinum are grossly stable. There is no definite evidence of a pneumothorax. There is no definite evidence of pleural effusion. There are mild patchy left basilar airspace opacities. The osseous structures are acutely grossly stable. THIS IS AN ELECTRONICALLY VERIFIED FINAL REPORT 04/16/2024 10:43 AM - Electronically signed by Brock Davison D.O. PS: PS Report ID: [id number] Reading Location: [id number] IMPRESSION: Mild patchy left basilar airspace opacities, which may be related to subsegmental atelectasis versus developing airspace disease. Cardiomegaly. Mateo Kwong MD IMG DIAGNOSTIC ORDERABLES Final Result * XR CHEST 2 VIEWS (04/13/2024 5:24 PM JUNIOR PROJECT MANAGER) Anatomical Region Laterality Modality Chest N/A Digital Radiogra phy 04/13/2024 6:16 PM JUNIOR PROJECT MANAGER Impressions 04/13/2024 6:18 PM JUNIOR PROJECT MANAGER IMPRESSION: No acute cardiopulmonary abnormality. Narrative 04/13/2024 6:18 PM JUNIOR PROJECT MANAGER EXAM DESCRIPTION: XR CHEST 2 VIEWS REASON FOR STUDY: left sided chest pain x 1 hour. ?? TECHNIQUE: 2 ??radiographic view(s) of the chest. COMPARISON: 07/10/2023 FINDINGS: LUNGS: Mild bibasilar atelectasis. ?? No focal pulmonary parenchymal consolidation, pleural effusion, or pneumothorax. ?? HEART/MEDIASTINUM: ??Cardiac silhouette normal in size. Mediastinal and hilar contours appear normal. LINES/TUBES: ??None. BONES: ??No acute osseous abnormality. THIS IS AN ELECTRONICALLY VERIFIED FINAL REPORT 04/13/2024 6:16 PM - Electronically signed by ??Graciela Kathleen M.D. AT: AT D: ??04/13/2024 6:16 PM T: ??04/13/2024 6:16 PM Report ID: [id number] Reading Location: ??[id number] Procedure Note Graciela Kathleen MD - 04/13/2024 EXAM DESCRIPTION: XR CHEST 2 VIEWS REASON FOR STUDY: left sided chest pain x 1 hour. TECHNIQUE: 2 radiographic view(s) of the chest. COMPARISON: 07/10/2023 FINDINGS: LUNGS: Mild bibasilar atelectasis. No focal pulmonary parenchymal consolidation, pleural effusion, or pneumothorax. HEART/MEDIASTINUM: Cardiac silhouette normal in size. Mediastinal and hilar contours appear normal. LINES/TUBES: None. BONES: No acute osseous abnormality. THIS IS AN ELECTRONICALLY VERIFIED FINAL REPORT 04/13/2024 6:16 PM - Electronically signed by Graciela Kathleen M.D. AT: AT Report ID: [id number] Reading Location: [id number] IMPRESSION: No acute cardiopulmonary abnormality. Cristina Espinosa Page PAC IMG DIAGNOSTIC ORDERABLES Fi nal Result * Blue Top Tube (04/13/2024 2:41 PM JUNIOR PROJECT MANAGER) Blood No Phlebotomy Charged / Unknown 04/13/2024 2:41 PM JUNIOR PROJECT MANAGER 04/13/2024 3:08 PM JUNIOR PROJECT MANAGER us Cristina Desha Page PAC HEMATOLOGY ORDERABLES Final Result [facility] [place] [address] from Last 3 Months Insurance [place] Care Teams Final Application Reviewer Relationship Specialty Start Date End Date Urbano, MIGUEL A GreenN, SURVEILLANCE OFFICER [address] [place] [id number] PCP - General Family Medicine 08/07/18 Sadie Pruitt APRN, SURVEILLANCE OFFICER [address] [facility], [address] [place] [address] Nurse Practitioner Cardiology 07/20/23
--- OUTSIDE RECORDS SUMMARY | 2024-06-17 09:03 | XMS_ITS | Encounter Summary ---
Author Organization [facility] Address [address] [place] [address] Phone Care Team Providers Care Strategic Development Manager Name Role Phone Urbano Norma PINEDA, COST COORDINATOR Primary Care Provider [phone] -[phone] Sadie Pruitt APRN, COST COORDINATOR Unavailable +1- [phone] Encounter Details Date Type Department Care Team (Late st Contact Info) Description 12/22/2019 [facility] [address] [place] [id number] Luciano Lopez MD [address] [place] [address] Pre-op testing (Primary Dx) Social History Tobacco Use Types Packs/Day Years Used Date Smoking Tobacco: Never Smokeless Tobacco: Never Alcohol Use Standard Drinks/Week Comments No 0 (1 standard drink = 0.6 oz pur e alcohol) Comments No Sex and Gender Information Value Date Recorded Sex Assigned at Not on file Legal Sex Female 9:11 PM CDT Gender Identity Not on file Sexual Orientation Not on file COVID-19 Exposure Response Date Recorded In the last month, have you been in contact with someone who was confirmed or suspected to have Coronavirus / COVID-19? No / Unsure 12/23/2019 11:48 AM CDT documented as of this encounter Plan of Treatment Not on file documented as of this encounter Results * PRE PROCEDURE/SCREEN SARS-COV-2 PCR (12/28/2019 10:52 AM CDT) SARSCOV2 NOT DETECTED (Reference Range for this test is Not Detected) 12/29/2019 10:41 PM CDT [facility] Swab NASOPHARYNGEAL STRUCTURE / Unknown Non-Phlebotomy Collection / Unknown 12/28/2019 10:52 AM CDT 12/28/2019 10:52 AM CDT Narrative [facility] - 12/29/2019 10:41 PM CDT Authorized Fact Sheets about this test for providers and patients are available at: https://www.fda.gov/medical-devices/ufdamfugv-uqarcpuprr-rauczim-devices/emergen -us e-authorizations us Luciano Lopez MD MICROBIOLOGY - GENERAL ORD ERABLES Final Result [facility] [address] [place] [address], [place] * HEMOGLOBIN & HEMATOCRIT (H&H) (12/23/2019 12:05 PM CDT) HEMOGLOBIN (HGB) 12.3 12.0 - 15.8 g/dL 12/23/2019 1:51 PM CDT [facility] HEMATOCRIT (HCT) 38.0 36.0 - 47.0 % 12/23/2019 1:51 PM CDT [facility] Blood Venipuncture / Unknown 12/23/2019 12:05 PM CDT 12/23/2019 1:42 PM CDT us David Moore DO HEMATOLOGY ORDERABL ES Final Result [facility] [address] [place] [address] documented in this encounter Visit Diagnoses Diagnosis [...] 19 04/16/2022 04/16/2022 04/26/2022 12:1 6 AM INSURANCE CLAIMS ADJUSTER COVID - 19 06/26/2023 06/26/2023 06/26/2023 3:16 PM INSURANCE CLAIMS ADJUSTER COVID - 19 Confirmed 06/26/2023 06/26/2023 024 12:16 AM INSURANCE CLAIMS ADJUSTER documented as of this encounter Care Teams Strategic Development Manager Relationship Specialty Start Date End Date Norma Urbano APRN, COST COORDINATOR [address] [place] [address] PCP - General Family Medicine 08/07/18 Sadie Pruitt APRN, COST COORDINATOR #2 [facility], [address] [place] [address] Nurse Practitioner Cardiology 07/20/23 documented as of this encounter
--- OUTSIDE RECORDS SUMMARY | 2024-06-17 09:03 | XMS_ITS | Encounter Summary ---
Author Organization [facility] Address [address] [place] [address] Phone Care Team Providers Care Weatherization Technician Name Role Phone Urbano, Norma PINEDA, WIRE HANGER Primary Care Provider [phone] [phone] Sadie Pruitt APRN, WIRE HANGER Unavailable [phone]- [phone] Reason for Visit * Reason Comments Medication Refill Encounter Details Date Type Department Care Team (Late st Contact Info) Description 07/06/2019 Refill [facility] - Gastroenterology - [place] #2 [place] [address] Tyra Henry, MIRIAM, WIRE HANGER [address] [address] Medication Refill Social History Tobacco Use Types [...] on file Sexual Orientation Not on file documented as of this encounter Miscellaneous Notes * Telephone Encounter - Les Tirado CMA - 07/07/2019 7:46 AM INPATIENT NURSING AIDE Patient calling requesting refill of: Requested Prescriptions Pending Prescriptions Disp Refills ??? pantoprazole (PROTONIX) 40 MG Tablet Delayed Response [Pharmacy Med Name: PANTOPRAZOLE 40MG TABLETS] 30 Tab 0 Sig: TAKE 1 TABLET BY MOUTH TWICE DAILY Last fill: 07/06/2019 Patients last OV with GI: 09/05/[address] berman Next Office Visit with GI: None scheduled TIENT NURSING AIDE documented in this encounter Plan of Treatment [...] 19 04/16/2022 04/16/2022 04/26/2022 12:1 6 AM INPATIENT NURSING AIDE COVID - 19 06/26/2023 06/26/2023 06/26/2023 3:16 PM INPATIENT NURSING AIDE COVID - 19 Confirmed 06/26/2023 06/26/2023 024 12:16 AM INPATIENT NURSING AIDE documented as of this encounter Care Teams Weatherization Technician Relationship Specialty Start Date End Date Norma Urbano APRN, DORIE [address] [place] [address] PCP - General Family Medicine 08/07/18 Sadie Pruitt APRN, CNP #2 [facility] [place], [address] [place] [address] Nurse Practitioner Cardiology 07/20/23 documented as of this encounter
--- OUTSIDE RECORDS SUMMARY | 2024-06-17 09:03 | XMS_ITS | Encounter Summary ---
Author Organization [facility] Address [address] [place] [address] Phone Care Team Providers Care Data Lead Name Role Phone Urbano Norma PINEDA, COMMERCIAL LEASING AGENT Primary Care Provider [phone] [phone] Sadie Pruitt APRN, COMMERCIAL LEASING AGENT Unavailable [phone]- [phone] Encounter Details Date Type Department Care Team (Late st Contact Info) Description 01/14/2020 [facility] 1 [place] [phone] Luciano Lopez MD [address] [place] [address] Pre-op testing (Primary Dx) Social History Tobacco [...] have Coronavirus / COVID-19? No / Unsure 12/31/2019 6:24 AM CDT documented as of this encounter Plan of Treatment Not on file documented as of this encounter Results * PRE PROCEDURE/SCREEN SARS-COV-2 PCR (01/25/2020 9:49 AM CDT) SARSCOV2 NOT DETECTED (Reference Range for this test is Not Detected) 01/27/2020 12:27 PM CDT [facility] Swab NASOPHARYNGEAL STRUCTURE / Unknown Non-Phlebotomy Collection / Unknown 01/25/2020 9:49 AM CDT 01/25/2020 9:49 AM CDT Narrative [facility] - 01/27/2020 12:27 PM CDT Authorized Fact Sheets about this test for providers and patients are available at: https://www.fda.gov/medical-devices/txvniukri-jecylypnuh-adebdka-devices/emergen -us e-authorizations us Luciano Lopez MD MICROBIOLOGY - GENERAL ORD ERABLES Final Result [facility] [address] [place] [address], documented in this encounter Visit Diagnoses Diagnosis [...] 19 04/16/2022 04/16/2022 04/26/2022 12:1 6 AM AUDIO INSTALLER COVID - 19 06/26/2023 06/26/2023 06/26/2023 3:16 PM AUDIO INSTALLER COVID - 19 Confirmed 06/26/2023 06/26/2023 024 12:16 AM AUDIO INSTALLER documented as of this encounter Care Teams Data Lead Relationship Specialty Start Date End Date Urbano, Norma, MEAT BONER AND SLICER, COMMERCIAL LEASING AGENT [address] [place] [address] PCP - General Family Medicine 08/07/18 Sadie Pruitt APRN, COMMERCIAL LEASING AGENT #2 [facility], [address] [place] [address] Nurse Practitioner Cardiology 07/20/23 documented as of this encounter
--- OUTSIDE RECORDS SUMMARY | 2024-06-17 09:03 | XMS_ITS | Encounter Summary ---
Author Organization [facility] Address [address] [place] [address] Phone Care Team Providers Care Machine Adjuster Leader Case Trim Name Role Phone Urbano Norma PINEDA, DIESEL ENGINE SPECIALIST Primary Care Provider [phone] [phone] Sadie Pruitt APRN, DIESEL ENGINE SPECIALIST Unavailable +1- [phone] Reason for Visit * Reason Comments Medication Refill Encounter Details Date Type Department Care Team (Late st Contact Info) Description 11/05/2019 Refill [facility] - Neurology - [place] #[address] [place] [phone] Vinicio Gamez MD [address] [place] [phone] Medication Refill Social History Tobacco Use Types [...] on file documented as of this encounter Plan of [...] 19 04/16/2022 04/16/2022 04/26/2022 12:1 6 AM CNC PROGRAMMER COVID - 19 06/26/2023 06/26/2023 06/26/2023 3:16 PM CNC PROGRAMMER COVID - 19 Confirmed 06/26/2023 06/26/2023 024 12:16 AM CNC PROGRAMMER documented as of this encounter Care Teams Machine Adjuster Leader Case Trim Relationship Specialty Start Date End Date Norma Urbano APRN, DIESEL ENGINE SPECIALIST [address] [place] [address] PCP - General Family Medicine 08/07/18 Sadie Pruitt APRN, DIESEL ENGINE SPECIALIST #2 [facility], [address] [place] [address] Nurse Practitioner Cardiology 07/20/23 documented as of this encounter
--- OUTSIDE RECORDS SUMMARY | 2024-06-17 09:03 | XMS_ITS | Referral Summary ---
Author Organization [facility] Address [address] [place] [address] Care Team Providers Care Vision Care Associate Name Role Phone Jasmyn Minaya SECURITY PATROL DRIVER-MANAGER SUPPLY CHAIN Primary Care Provider [phone] -[phone] Source Comments [facility],non-owned Affiliates and Associated Physician Practices is amultiple site organization consisting of ambulatory clinics and hospital sitesin [place], [place], [place]. This disclosure is being madepursuant to the Care Everywhere program and may not contain all information available regarding this patient. Last updated 18.[facility] Allergies Active Allergy Reactions Criticality Noted Date Comments Silver Urticaria Medium 02/27/2017 Medications * Be aware that medications may not be up to date on this document. Alwaysverify current medications with the patient. Medication Sig Dispensed Refills Start Date End Date Status amitriptyline (ELAVIL) 10 MG tablet Take 10 mg by mouth Active topiramate (TOPAMAX) 25 MG tablet TAKE 3 TABLETS BY MOUTH TWICE DAILY 02/08/2017 Active ibuprofen (MOTRIN) 600 MG tablet Take 600 mg by mouth 02/04/2017 Active VITAMIN D, CHOLECALCIFEROL, PO Take 50,000 Units by mouth every 7 days Active albuterol HFA (PROVENTIL;VENTOLIN;RI OAIR) 108 (90 BASE) MCG/ACT inhaler 09/15/2016 Active omeprazole (PRILOSEC) 20 MG capsule Take 20 mg by mouth 03/05/2015 Active Social History Tobacco Use Types Packs/Day Years Used Date Smoking Tobacco: Never Smokeless Tobacco: Never Alcohol Use Standard Drinks/Week Comments No 0 (1 standard drink = 0.6 oz pur e alcohol) Sex and Gender Information Value Date Recorded Sex Assigned at Not on file Gender Identity Not on file Sexual Orientation Not on file Last Filed Vital Signs Vital Sign Reading Time Taken Comments Blood Pressure 122/76 06/29/2017 7:48 AM SENIOR WEB APPLICATIONS DEVELOPER Pulse 82 06/29/2017 7:48 AM SENIOR WEB APPLICATIONS DEVELOPER Temperature 36.6 ??C (97.9 ??F) 06/29/2017 7:48 AM CS T Respiratory Rate 16 02/27/2017 3:10 PM CDT Oxygen Saturation 99% 06/29/2017 7:48 AM SENIOR WEB APPLICATIONS DEVELOPER Inhaled Oxygen Concentration - - Weight 152.9 kg (337 lb) 06/29/2017 7:48 AM SENIOR WEB APPLICATIONS DEVELOPER Height 170.2 cm (5' 7 ) 06/29/2017 7:48 AM SENIOR WEB APPLICATIONS DEVELOPER Body Mass Index 52.78 06/29/2017 7:48 AM SENIOR WEB APPLICATIONS DEVELOPER Plan of Treatment Not on file Care Teams Vision Care Associate Relationship Specialty Start Date End Date Jasmyn Minaya, SECURITY PATROL DRIVER-MANAGER SUPPLY CHAIN [address] [place], [place] [id number] PCP - General Nurse Practitioner 02/27/17
--- OUTSIDE RECORDS SUMMARY | 2024-06-17 09:03 | XMS_ITS | Encounter Summary ---
Author Organization [facility] Address [address] [place] [address] Phone Care Team Providers Care Sociology Research Assistant Name Role Phone Yolie, Norma PINEDA, SEO COORDINATOR Primary Care Provider [phone] -[phone] Sadie Pruitt APRN, SEO COORDINATOR Unavailable +1- [phone] Reason for Visit * Reason Comments Medication Refill Encounter Details Date Type Department Care Team (Late st Contact Info) Description 07/12/2019 Refill [facility] - Neurology - [place] #1 [place] [address] Yeimy Farias JIG FITTER, SEO COORDINATOR #2 [place] [address] Medication Refill Social History Tobacco Use Types [...] Indicated Resolved Time COVID - 19 01/05/2021 01/05/202101/25/2021 12:1 6 AM CDT C. difficile Rule-Out 03/14/2021 03/14/20212020 12:16 AM CDT COVID - 19 09/04/2021 09/04/2021 09/24/2021 12:1 6 AM CDT COVID - 19 Confirmed 11/22/2021 11/22/2021 022 12:16 AM CDT COVID - 19 04/16/2022 04/16/2022 04/26/2022 12:1 6 AM SALES STORE CHECKER COVID - 19 06/26/2023 06/26/2023 06/26/2023 3:16 PM SALES STORE CHECKER COVID - 19 Confirmed 06/26/2023 06/26/2023 024 12:16 AM SALES STORE CHECKER documented as of this encounter Care Teams Sociology Research Assistant Relationship Specialty Start Date End Date Norma Urbano APRN, SEO COORDINATOR [address] [place] [address] PCP - General Family Medicine 08/07/18 Sadie Pruitt APRN, SEO COORDINATOR #2 [facility], [address] [place] [address] Nurse Practitioner Cardiology 07/20/23 documented as of this encounter
--- OUTSIDE RECORDS SUMMARY | 2024-06-17 09:03 | XMS_ITS | Encounter Summary ---
Author Organization [facility] Address [address] [facility] [place] [address] Phone Care Team Providers Care News Assistant Name Role Phone Norma Urbano APRN, CNP Primary Care Provider [phone] -[phone] Sadie Pruitt APRN, CNP Unavailable +1- [phone] Reason for Referral * PT/OT/ST (Routine) - Closed Specialty Diagnoses / Procedures Referred By Contac t Referred To Contact Physical Therapy Diagnoses Arthritis of facet joint of lumbar spine Marcia Waggoner APRN, CNP [address] [place] [address] Phone: tel: fax: [facility] at [address], [address] [address] Phone: tel: fax: Referral ID Status Reason Start Date Expiration Date Visits Re quested Visits Authorized [id number] Closed 12/06/2023 50 12 Scheduling Instructions Encounter Details Date Type Department Care Team (Latest Contact Info) Description 12/06/2023 Transcribe Orders [facility] [address] [place] [address] Marcia Waggoner APRN, INFORMATION SERVICES MANAGER [address] [place] [address] Arthritis of facet joint of lumbar spine (Primary Dx) Social History Tobacco Use Types [...] as of this encounter Plan of Treatment Scheduled Referrals Name Type Priority Associated Diagnoses Orde r Schedule PHYSICAL THERAPY REFERRAL Outpatient Referral Routine Arthritis of facet joint of lumbar spine Expected: 12/06/2023, Expires: 12/05/2024 documented as of this encounter Visit Diagnoses Diagnosis Arthritis of facet joint of lumbar spine- Primary documented in this encounter Care Teams News Assistant Relationship Specialty Start Date End Date Norma Urbano APRN, DORIE [address] [place] [address] PCP - General Family Medicine 08/07/18 Sadie Pruitt APRN, INFORMATION SERVICES MANAGER #2 [facility], [address] [place] [address] Nurse Practitioner Cardiology 07/20/23 documented as of this encounter
--- OUTSIDE RECORDS SUMMARY | 2024-06-17 09:03 | XMS_ITS | Encounter Summary ---
Author Organization [facility] Address [address] [place] [place] [address] Phone Care Team Providers Care Electroformer Name Role Phone Yolie, Norma PINEDA, NITROGEN OPERATOR Primary Care Provider [phone] -[phone] Sadie Pruitt APRN, NITROGEN OPERATOR Unavailable +1- [phone] Reason for Visit * Reason Comments Medication Refill Encounter Details Date Type Department Care Team (Late st Contact Info) Description 09/24/2019 Refill [facility] - Neurology - [place] #1 [place] [address] Yeimy Farias APRN, NITROGEN OPERATOR #2 [place] [address] Medication Refill Social History Tobacco [...] have Coronavirus / COVID-19? No / Unsure 09/18/2019 9:28 AM CDT documented as of this encounter [...] 19 04/16/2022 04/16/2022 04/26/2022 12:1 6 AM GRANITE SANDBLASTER APPRENTICE COVID - 19 06/26/2023 06/26/2023 06/26/2023 3:16 PM GRANITE SANDBLASTER APPRENTICE COVID - 19 Confirmed 06/26/2023 06/26/2023 024 12:16 AM GRANITE SANDBLASTER APPRENTICE documented as of this encounter Care Teams Electroformer Relationship Specialty Start Date End Date Norma Urbano APRN, NITROGEN OPERATOR [address] [place] [address] PCP - General Family Medicine 08/07/18 Sadie Pruitt APRN, NITROGEN OPERATOR #2 [facility], [address] [place] [address] Nurse Practitioner Cardiology 07/20/23 documented as of this encounter
--- OUTSIDE RECORDS SUMMARY | 2024-06-17 09:03 | XMS_ITS | Encounter Summary ---
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
--- OUTSIDE RECORDS SUMMARY | 2024-06-17 09:03 | XMS_ITS | Patient Health Summary ---
Author Organization [facility] Address [address] [place] [address] Care Team Providers Care Patient Safety Sitter Name Role Phone Jasmyn Minaya TILE PRESSER-JEWISH THOUGHT PROFESSOR Primary Care Provider [phone] Note from [facility],non-owned Affiliates and Associated Physician Practices is amultiple site organization consisting of ambulatory clinics and hospital sitesin [place], [place], [place]. This disclosure is being madepursuant to the Care Everywhere program and may not contain all information available regarding this patient. Last updated 18.[facility] Allergies * Silver(Urticaria) -Medium Criticality Medications * Be aware that medications may not be up to date on this document. Alwaysverify current medications with the patient. * amitriptyline (ELAVIL) 10 MG tablet Take 10 mg by mouth * topiramate (TOPAMAX) 25 MG tablet(Started 02/08/2017) TAKE 3 TABLETS BY MOUTH TWICE DAILY * ibuprofen (MOTRIN) 600 MG tablet(Started 02/04/2017) Take 600 mg by mouth * VITAMIN D, CHOLECALCIFEROL, PO Take 50,000 Units by mouth every 7 days * albuterol HFA (PROVENTIL;VENTOLIN;PROAIR) 108 (90 BASE) MCG/ACT inhaler (Started 09/15/2016) * omeprazole (PRILOSEC) 20 MG capsule(Started 03/05/2015) Take 20 mg by mouth Social History Tobacco Use Types Packs/Day Years [...] Comments Blood Pressure 122/76 06/29/2017 7:48 AM CLAY PIGEON LOADER Pulse 82 06/29/2017 7:48 AM CLAY PIGEON LOADER Temperature 36.6 ??C (97.9 ??F) 06/29/2017 7:48 AM CS T Respiratory Rate 16 02/27/2017 3:10 PM CDT Oxygen Saturation 99% 06/29/2017 7:48 AM CLAY PIGEON LOADER Inhaled Oxygen Concentration - - Weight 152.9 kg (337 lb) 06/29/2017 7:48 AM CLAY PIGEON LOADER Height 170.2 cm (5' 7 ) 06/29/2017 7:48 AM CLAY PIGEON LOADER Body Mass Index 52.78 06/29/2017 7:48 AM CLAY PIGEON LOADER Procedures * STREP A SCREEN - POINT OF CARE (AMB) STL(Performed 06/29/2017) Performed for Rhinosinusitis * PATHOLOGY TISSUE(Performed 04/18/2015) * BASIC METABOLIC PANEL (CALCIUM TOTAL)(Performed 04/18/2015) * CBC W AUTO DIFFERENTIAL(Performed 04/18/2015) * CBC W AUTO DIFFERENTIAL(Performed 04/18/2015) * TYPE + SCREEN PANEL(Performed 04/17/2015) * BASIC METABOLIC PANEL (CALCIUM TOTAL)(Performed 04/17/2015) * PHOSPHORUS BLOOD(Performed 04/17/2015) * MAGNESIUM BLOOD(Performed 04/17/2015) * CBC W AUTO DIFFERENTIAL(Performed 04/17/2015) * CBC W AUTO DIFFERENTIAL(Performed 04/17/2015) * URINALYSIS W/MICROSCOPIC NO CULTURE(Performed 04/17/2015) * COMPREHENSIVE METABOLIC PANEL(Performed 04/16/2015) * LIPASE BLOOD(Performed 04/16/2015) * LACTIC ACID BLOOD(Performed 04/16/2015) * CBC W AUTO DIFFERENTIAL(Performed 04/16/2015) * CBC W AUTO DIFFERENTIAL(Performed 04/16/2015) * HELICOBACTER PYLORI ANTIBODY IGG(Performed 03/05/2015) * HELICOBACTER PYLORI ANTIBODY IGA(Performed 03/05/2015) * HELICOBACTER PYLORI ANTIBODY IGM(Performed 03/05/2015) Results * STREP A SCREEN - POINT OF CARE (AMB) STL (06/29/2017) Strep A Rapid POCT Negative Negative Strep A Internal Control Present Lot # [id number] Expiration Date [id number] Throat ENTIRE THROAT (SURFACE REGION OF NECK) / Unknown 06/29/2017 Mary Glass TILE PRESSER-JEWISH THOUGHT PROFESSOR LAB - POINT O F CARE ORDERABLES * PATHOLOGY TISSUE (04/18/2015 12:01 PM CLAY PIGEON LOADER) Surgical Pathology Tissue CLINICAL HISTORY: No clinical history is provided. FINAL DIAGNOSIS: GALLBLADDER, CHOLECYSTECTOMY: - ? CHRONIC CHOLECYSTITIS AND CHOLELITHIASIS - ? CHOLESTEROLOSIS PRESENT GROSS DESCRIPTION: The specimen is received fixed in formalin in one container labeled with the patient's name, Fifi Norton and gallbladder , and consists of a gallbladder measuring 8.6 cm in length x up to 2.8 cm in diameter. ??The cystic duct is stapled closed. ??The serosal surface is purple-cesar, smooth and glistening. ??The gallbladder is opened and contains two round, nodular yellow stones located in the body of the gallbladder, ranging in greatest dimension from 1.7 to 1.4 cm. ??The wall thickness ranges from 0.2 to 0.3 cm in thickness. ??The mucosal surface is green with yellow stippling. ??Drone Operator sections including the cystic duct, body and fundus are submitted in cassette A1. MNR for /edk MICROSCOPIC DESCRIPTION: Microscopic findings support the final diagnosis. JL/YC The performance characteristics of all immunohistochemical and indirect immunofluorescence stains (if any) cited in this report were determined by the Histopathology Laboratory of [facility].?? Some of these tests were developed by our own laboratory and have not been cleared or approved by the US Food and Drug Administration.?The FDA does not require this test to go through premarket FDA review.?These tests are used for clinical purposes. They should not be regarded as investigational or for research.?? This laboratory is certified under the Clinical Laboratory Improvement Amendments (CLIA) as qualified to perform high complexity clinical laboratory testing. This case has been personally reviewed and interpreted by the attending (teaching) pathologist. Final Diagnosis performed by Trell Amaya MD. Electronically signed 04/20/2015 [facility] (BEAKER) Other (qualifier value) 04/18/2015 12:01 PM CLAY PIGEON LOADER 04/19/2015 8:25 AM CLAY PIGEON LOADER Narrative [facility] ([place]) - 04/20/2015 3:50 PM CLAY PIGEON LOADER Collection Date->04/18/15 Collection Time->12:01 AM Specimen A->Gallbladder 1. gallbladder for perm path Antonio Wharton MD LAB - PATHOLOGY/CYTO LOGY ORDERABLES [facility] ([place]) * (ABNORMAL) CBC W AUTO DIFFERENTIAL (04/18/2015 8:05 AM CLAY PIGEON LOADER) Only the most recent of6 resultswithin the time period is included. WBC 9.4 3.5 - 10.5 10? 3 /uL [facility] RBC 4.00 3.90 - 5.00 10? 6 /uL [facility] Hemoglobin 11.7(L) 12.0 - 15.5 g/dL [facility] Hematocrit 33.9(L) 35.0 - 45.0 % [facility] MCV 84.8 81.0 - 97.0 fL [facility] MCH 29.3 28.0 - 34.0 pg [facility] MCHC 34.5 32.0 - 36.0 g/dL [facility] Platelet Count 213 150 - 400 10? 3 /uL [facility] RDW-SD 40.2 36.0 - 50.0 fL [facility] RDW-CV 13.2 11.2 - 14.8 % [facility] MPV 9.3 9.3 - 12.8 fL [facility] Neutrophils % 83.6(H) 35.0 - 70.0 % [facility] Lymphocytes % 9.5(L) 19.7 - 55.1 % [facility] Monocytes % 6.7 3.0 - 15.0 % [facility] Eosinophils % 0.1 0.0 - 6.0 % [facility] Basophil % 0.1 0.0 - 1.5 % [facility] Neutrophils Absolute 7.9(H) 1.6 - 7.0 10? 3 /uL [facility] Lymphocyte Absolute 0.9 0.8 - 2.9 10? 3 /uL [facility] Monocytes Absolute 0.63 0.14 - 0.66 10? 3 /uL [facility] Eosinophils Absolute 0.01 0.00 - 0.22 10? 3 /uL [facility] Basophils Absolute 0.01 0.00 - 0.06 10? 3 /uL [facility] Immature Granulocytes % 0.1 0.0 - 1.0 % [facility] Blood specimen (specimen) BLOOD SPECIMEN / Unknown 04/18/2015 8:05 AM CLAY PIGEON LOADER 04/18/2015 9:05 AM CLAY PIGEON LOADER Antonio Wharton MD LAB - HEMATOLOGY [place] [address] [phone] * (ABNORMAL) BASIC METABOLIC PANEL (CALCIUM TOTAL) (04/18/2015 8:05 AM CLAY PIGEON LOADER) Only the most recent of2 resultswithin the time period is included. BUN 7 7 - 26 mg/dL [facility] Creatinine 0.8 0.6 - 1.2 mg/dL [facility] Sodium 135(L) 136 - 145 mmol/L [facility] Potassium 4.2 3.5 - 4.5 mmol/L [facility] Chloride 104 98 - 107 mmol/L [facility] CO2 22 22 - 29 mmol/L [facility] Glucose 119(H) 70 - 115 mg/dL [facility] Calcium 8.6 8.4 - 10.2 mg/dL [facility] Anion Gap 13 8 - 18 [facility] BUN/Creatinine Ratio 9 7 - 23 [facility] Osmolality Calculated 265(L) 270 - 300 mOsm/kg [facility] eGFR >60 >60 mL/min/1.7 3 m2 [facility] Blood specimen (specimen) BLOOD SPECIMEN / Unknown 04/18/2015 8:05 AM CLAY PIGEON LOADER 04/18/2015 9:05 AM CLAY PIGEON LOADER Antonio Wharton MD LAB - CHEMISTRY TRESA WHITE [address] [phone] * TYPE + SCREEN PANEL (04/17/2015 2:16 AM CLAY PIGEON LOADER) Typem A POS [facility] Antibody Screen NEG [facility] Blood specimen (specimen) 04/17/2015 2:16 AM CLAY PIGEON LOADER 04/17/2015 2:41 AM CLAY PIGEON LOADER Antonio Wharton MD LAB - BLOOD BANK ORD ERABLES Performing Organization Address City/[facility] Co de Phone Number [facility] [address] [place] [address] * PHOSPHORUS BLOOD (04/17/2015 2:16 AM CLAY PIGEON LOADER) Phosphorus 3.1 2.3 - 4.7 mg/dL [facility] Blood specimen (specimen) BLOOD SPECIMEN / Unknown 04/17/2015 2:16 AM CLAY PIGEON LOADER 04/17/2015 2:36 AM CLAY PIGEON LOADER Natalie Dumont MD LAB - CHEMISTRY ORDDella WHITE Performing Organization Address [facility]/ZIP Co de Phone Number [address] [phone] * MAGNESIUM BLOOD (04/17/2015 2:16 AM CLAY PIGEON LOADER) Magnesium 1.9 1.6 - 2.6 mg/dL [facility] Blood specimen (specimen) BLOOD SPECIMEN / Unknown 04/17/2015 2:16 AM CLAY PIGEON LOADER 04/17/2015 2:36 AM CLAY PIGEON LOADER Natalie Dumont MD LAB - CHEMISTRY TREAS WHITE Performing Organization Address City/[facility]/ZIP Co de Phone Number [address] [phone] * URINALYSIS W/MICROSCOPIC NO CULTURE (04/17/2015 12:44 AM CLAY PIGEON LOADER) Color UA Yellow Straw, Yellow, Colorless, Light Yellow [facility] Clarity UA Clear Clear [facility] Specific Beaman UA 1.005 1.001 - 1.030 [facility] pH UA 5.0 5.0 - 8.0 [facility] Protein UA Negative <=20 mg/dL [facility] Glucose UA Negative Negative mg/dL [facility] Ketone UA Negative Negative mg/dL [facility] Bilirubin UA Negative Negative mg/dL [facility] Blood UA Negative Negative [facility] Nitrite UA Negative Negative [facility] Leukocyte Esterase Negative Negative [facility] Urobilinogen UA <2.0 <2.0 mg/dL [facility] RBC UA 2 0 - 8 /HPF [facility] WBC UA <1 0 - 2 /HPF [facility] Bacteria UA Rare Rare, Occasional, None /HPF [facility] Squamous Epithelial Cells UA <1 0 - 1 /HPF [facility] Urine specimen (specimen) URINE SPECIMEN OBTAINED BY CLEAN CATCH PROCEDURE / Unknown 04/17/2015 12:44 AM CLAY PIGEON LOADER 04/17/2015 12:52 AM CLAY PIGEON LOADER Natalie Dumont MD LAB - URINALYSIS ORD ERABLES [address] [phone] * (ABNORMAL) COMPREHENSIVE METABOLIC PANEL (04/16/2015 8:50 PM CLAY PIGEON LOADER) BUN 10 7 - 26 mg/dL [facility] Creatinine 0.8 0.6 - 1.2 mg/dL [facility] Sodium 136 136 - 145 mmol/L [facility] Potassium 4.0 3.5 - 4.5 mmol/L [facility] Chloride 105 98 - 107 mmol/L [facility] CO2 21(L) 22 - 29 mmol/L [facility] Glucose 93 70 - 115 mg/dL [facility] Calcium 8.7 8.4 - 10.2 mg/dL [facility] Protein Total 6.1 6.0 - 8.3 g/dL [facility] Albumin 3.2(L) 3.4 - 5.0 g/dL [facility] Bilirubin Total 0.8 0.2 - 1.2 mg/dL [facility] Alkaline Phosphatase 62 40 - 150 Units/L [facility] ALT 22 0 - 55 Units/L [facility] AST 16 5 - 34 Units/L [facility] Anion Gap 14 8 - 18 [facility] BUN/Creatinine Ratio 13 7 - 23 [facility] Osmolality Calculated 267(L) 270 - 300 mOsm/kg [facility] Albumin/Globulin Ratio 1.1 1.1 - 2.3 [facility] eGFR >60 >60 mL/min/1.7 3 m2 [facility] Blood specimen (specimen) BLOOD SPECIMEN / Unknown 04/16/2015 8:50 PM CLAY PIGEON LOADER 04/16/2015 8:57 PM CLAY PIGEON LOADER Narrative Authorizing Provider Result Bill Dumont MD LAB - CHEMISTRY ORDDella WHITE Performing Organization Address City/[facility]/ZIP Co de Phone Number [address] [phone] * LIPASE BLOOD (04/16/2015 8:50 PM CLAY PIGEON LOADER) Lipase 15 8 - 78 Units/L [facility] Blood specimen (specimen) BLOOD SPECIMEN / Unknown 04/16/2015 8:50 PM CLAY PIGEON LOADER 04/16/2015 8:57 PM CLAY PIGEON LOADER Narrative Authorizing Provider Result Bill Dumont MD LAB - CHEMISTRY TRESA WHITE [address] [phone] * LACTIC ACID BLOOD (04/16/2015 8:50 PM CLAY PIGEON LOADER) Lactic Acid-Stat 0.5 0.5 - 2.2 mmol/L [facility] Blood specimen (specimen) BLOOD SPECIMEN / Unknown 04/16/2015 8:50 PM CLAY PIGEON LOADER 04/16/2015 8:57 PM CLAY PIGEON LOADER Narrative Authorizing Provider Result Bill Dumont MD LAB - CHEMISTRY TRESA WHITE [address] [phone] * HELICOBACTER PYLORI ANTIBODY IGA (03/05/2015 3:02 PM CDT) Helicobacter pylori Antibody IgA <9.0 0.0 - 8.9 units [facility] ([place]) Comment: ?Negative ?<9.0 ?Equivocal ?? 9.0 - 11.0 ?Positive ? >11.0 Blood specimen (specimen) BLOOD SPECIMEN / Unknown 03/05/2015 3:02 PM CDT 03/05/2015 3:24 PM CDT Narrative [facility] ([place]) - 03/08/2015 3:17 PM CDT Performed at: ??[address] ??[id number] [employer] Production Line: Adiel Gr PhD, Phone: ??[phone] Vj Lopez MD LAB - SEROLOGY ORDER MESFIN Performing Organization Address City/State/[facility] Co de Phone Number [facility] ([place]) * HELICOBACTER PYLORI ANTIBODY IGG (03/05/2015 3:02 PM CDT) Helicobacter pylori Antibody IgG <0.9 0.0 - 0.8 U/mL [facility] ([place]) Comment: ? Negative ?<0.9 ? Indeterminate ??0.9 - 1.0 ? Positive ?>1.0 Blood specimen (specimen) BLOOD SPECIMEN / Unknown 03/05/2015 3:02 PM CDT 03/05/2015 3:24 PM CDT Narrative [facility] ([place]) - 03/08/2015 5:12 PM CDT Performed at: ??01 - [address], [place], [place] ??[id number] [employer]: Adiel Gr PhD, Phone: ??[phone] Vj Lopez MD LAB - CHEMISTRY TRESA WHITE [facility] * HELICOBACTER PYLORI ANTIBODY IGM (03/05/2015 3:02 PM CDT) Helicobacter pylori Antibody IgM <9.0 0.0 - 8.9 units [facility] ([place]) Comment: ?Negative ?<9.0 ?Equivocal ?? 9.0 - 11.0 ?Positive ? >11.0 This test was developed and its performance characteristics determined by [facility]. It has not been cleared or approved by the Food and Drug Administration. Results of this test are for investigational purposes only. The result should not be used as a diagnostic procedure without confirmation of the diagnosis by another medically diagnostic product or procedure. Blood specimen (specimen) BLOOD SPECIMEN / Unknown 03/05/2015 3:02 PM CDT 03/05/2015 3:24 PM CDT Narrative [facility] ([place]) - 03/08/2015 3:17 PM CDT Performed at: ??01 - [facility] [address], [place], [place] ??[id number] [employer]: Adiel Gr PhD, Phone: ??[phone] Vj Lopez MD LAB - SEROLOGY ORDER MESFIN [facility] ([place]) Care Teams Patient Safety Sitter Relationship Specialty Start Date End Date Jasmyn Minaya, TILE PRESSER-JEWISH THOUGHT PROFESSOR [address] [place], [place] [phone] PCP - General Nurse Practitioner 02/27/17
--- OUTSIDE RECORDS SUMMARY | 2024-06-17 09:03 | XMS_ITS | Encounter Summary ---
Author Organization [facility] Healthcare Address [address] [place] [address] Care Team Providers Care Staff Submarine Warfare Officer Name Role Phone Norma Urbano NP Primary Care Provider Encounter Details Date Type Department Care Team (Late st Contact Info) Description 08/27/2020 Telephone [facility] [address] [place] [address] Glenis Monet, RT Social History Tobacco Use [...] on file Legal Sex Female 7:59 PM DIRECTOR VALIDATION Gender Identity Not on file Sexual Orientation Straight 11/28/2019 3: 40 PM CDT documented as of this encounter Plan of Treatment Not on file documented as of this encounter Visit Diagnoses Not on filedocumented in this encounter Care Teams Staff Submarine Warfare Officer Relationship Specialty Start Date End Date Norma Urbano NP [address] [place] [address] PCP - General 11/29/18 documented as of this encounter
--- OUTSIDE RECORDS SUMMARY | 2024-06-17 09:03 | XMS_ITS | Encounter Summary ---
Author Organization [facility] Address [address] [place] [address] Phone Care Team Providers Care Informatica Architect Name Role Phone Urbano Norma PINEDA, TURNER MACHINE OPERATOR Primary Care Provider [phone] Sadie Pruitt APRN, TURNER MACHINE OPERATOR Unavailable [phone]- [phone] Reason for Visit * Reason Comments Medication Refill Encounter Details Date Type Department Care Team (Late st Contact Info) Description 05/19/2020 Refill [facility] - Neurology - [place] [address] [place] [phone] Vinicio Gamez MD [address] [place] [phone] Medication Refill Social History Tobacco Use Types Packs/Day Years Used Date Smoking Tobacco: Never Smokeless Tobacco: Never Alcohol Use Standard Drinks/Week Comments No 0 (1 standard drink = 0.6 oz pur e alcohol) Sexually Active Control Partners Comments Not Currently Comments No Sex and Gender Information Value Date Recorded Sex Assigned at Not on file Legal Sex Female 9:11 PM CDT Gender Identity Not on file Sexual Orientation Not on file COVID-19 Exposure Response Date Recorded In the last month, have you been in contact with someone who was confirmed or suspected to have Coronavirus / COVID-19? No / Unsure 05/18/2020 2:37 PM POULTRY HATCHERY MAN documented as of this encounter Plan of [...] 19 04/16/2022 04/16/2022 04/26/2022 12:1 6 AM POULTRY HATCHERY MAN COVID - 19 06/26/2023 06/26/2023 06/26/2023 3:16 PM POULTRY HATCHERY MAN COVID - 19 Confirmed 06/26/2023 06/26/2023 024 12:16 AM POULTRY HATCHERY MAN documented as of this encounter Care Teams Informatica Architect Relationship Specialty Start Date End Date Norma Urbano APRN, TURNER MACHINE OPERATOR [address] [place] [address] PCP - General Family Medicine 08/07/18 Sadie Pruitt APRN, TURNER MACHINE OPERATOR [address] [facility] [place] [address] Nurse Practitioner Cardiology 07/20/23 documented as of this encounter
--- OUTSIDE RECORDS SUMMARY | 2024-06-17 09:03 | XMS_ITS | Encounter Summary ---
Author Organization [facility] Address [address] [place] [address] Phone Care Team Providers Care Metal Checker Name Role Phone Urbano Norma PINEDA, HIGHWAY ENGINEERING TECHNICIAN Primary Care Provider [phone] Sadie Pruitt APRN, HIGHWAY ENGINEERING TECHNICIAN Unavailable [phone]- [phone] Reason for Visit * Reason Comments Medication Refill Encounter Details Date Type Department Care Team (Late st Contact Info) Description 01/17/2020 Refill [facility] - Neurology - [place] [address] [place] [phone] Vinicio Gamez MD [address] [place] [phone] Medication Refill Social History Tobacco Use Types [...] 19 04/16/2022 04/16/2022 04/26/2022 12:1 6 AM RESPIRATORY CARE TECHNICIAN COVID - 19 06/26/2023 06/26/2023 06/26/2023 3:16 PM RESPIRATORY CARE TECHNICIAN COVID - 19 Confirmed 06/26/2023 06/26/2023 024 12:16 AM RESPIRATORY CARE TECHNICIAN documented as of this encounter Care Teams Metal Checker Relationship Specialty Start Date End Date Norma Urbano APRN, HIGHWAY ENGINEERING TECHNICIAN [address] [place] [address] PCP - General Family Medicine 08/07/18 Sadie Pruitt APRN, HIGHWAY ENGINEERING TECHNICIAN [address] [facility] [place] [address] Nurse Practitioner Cardiology 07/20/23 documented as of this encounter
--- OUTSIDE RECORDS SUMMARY | 2024-06-17 09:03 | XMS_ITS | Clinical Summary ---
Author Organization [facility] Address [address] [place] [address] Care Team Providers Care Recreation Therapy Director Name Role Phone Jasmyn Minaya NET ARCHITECT-CONTROL ROOM TECHNICIAN Primary Care Provider [phone] Source Comments [facility],non-owned Affiliates and Associated Physician Practices is amultiple site organization consisting of ambulatory clinics and hospital sitesin [place], [place], [place] and [place]. This disclosure is being madepursuant to the Care Everywhere program and may not contain all information available regarding this patient. Last updated 18.[facility] Allergies Active Allergy Reactions Criticality Noted Date [...] mouth every 7 days Active albuterol HFA (PROVENTIL;VENTOLIN;SD OAIR) 108 (90 BASE) MCG/ACT inhaler 09/15/2016 [...] Comments Blood Pressure 122/76 06/29/2017 7:48 AM COMMODITY MANAGER Pulse 82 06/29/2017 7:48 AM COMMODITY MANAGER Temperature 36.6 ??C (97.9 ??F) 06/29/2017 7:48 AM CS T Respiratory Rate 16 02/27/2017 3:10 PM CDT Oxygen Saturation 99% 06/29/2017 7:48 AM COMMODITY MANAGER Inhaled Oxygen Concentration - - Weight 152.9 kg (337 lb) 06/29/2017 7:48 AM COMMODITY MANAGER Height 170.2 cm (5' 7 ) 06/29/2017 7:48 AM COMMODITY MANAGER Body Mass Index 52.78 06/29/2017 7:48 AM COMMODITY MANAGER Plan of Treatment Health Maintenance Due Date Last Done Comments PAP SMEAR 1986 HIV SCREENING 2001 HEPATITIS C SCREENING 09/17/2004 DTAP/TDAP/TD VACCINES (1 - Tdap) 2005 HEPATITIS B VACCINE (1 of 3 - 19+ 3-dose series) 2005 COVID-19 VACCINE (1 - 2023-2 5 season) 2024 INFLUENZA VACCINE (#1) 2024 DEPRESSION SCREENING 05/21/2024 ZOSTER VACCINE (1 of 2) 2036 HIB VACCINE Aged Out No longer eligi ble based on patient's age to complete this topic HPV VACCINE Aged Out No longer eligi ble based on patient's age to complete this topic MENINGOCOCCAL (Group B) VACCINE Aged Out No longer eligible based on patient's age to complete this topic MENINGOCOCCAL VACCINE Aged Out No joshua nery eligible based on patient's age to complete this topic PNEUMOCOCCAL VACCINE Aged Out No long er eligible based on patient's age to complete this topic Care Teams Recreation Therapy Director Relationship Specialty Start Date End Date Jasmyn Minaya, NET ARCHITECT-CONTROL ROOM TECHNICIAN [address] [place], [place] [id number] PCP - General Nurse Practitioner 02/27/17
--- OUTSIDE RECORDS SUMMARY | 2024-06-17 09:03 | XMS_ITS | Encounter Summary ---
Author Organization [facility] Address [address] [place] [address] Phone Care Team Providers Care Residential Aide Name Role Phone Urbano, Norma PINEDA, ELECTRICAL HARDWARE ENGINEER Primary Care Provider [phone] Sadie Pruitt APRN, ELECTRICAL HARDWARE ENGINEER Unavailable [phone]- [phone] Reason for Visit * Reason Comments Medication Refill Encounter Details Date Type Department Care Team (Late st Contact Info) Description 08/29/2021 Refill [facility] - Gastroenterology - [place] [address] [place] [id number] Loren Lua Allison, [facility] [address] [place] [address] Medication Refill Social History Tobacco Use Types [...] * Telephone Encounter - Deedee Bethea - 08/31/2021 12:42 PM CDT My chart message was sent to make the pt aware * Telephone Encounter - Loren Lua PAC - 08/31/2021 8:57 AM CDT Renewed for 90 days. May obtain further refills from primary care provider. * Telephone Encounter - Francisca Mirza RN - 08/31/2021 8:33 AM CDT Pharmacy requesting refill of: Requested Prescriptions Pending Prescriptions Disp Refills ??? pantoprazole (PROTONIX) 40 MG Tablet Delayed Response [Pharmacy Med Name: PANTOPRAZOLE 40MG TABLETS] 60 Tablet 3 Sig: TAKE 1 TABLET BY MOUTH TWICE DAILY Last fill: 03/10/2021 Patients last OV with GI: 01/28/2021 Next Office Visit with GI: None scheduled. Patient had EGD done by Dr. Busby on 03/14/2021. Pantoprazole order pended, please review. documented in this encounter Plan of Treatment Not on file documented as of this encounter Visit Diagnoses Not on filedocumented in this encounter Additional Health Concerns Infection Onset Date Last Indicated Resolved Time COVID - 19 09/04/2021 09/04/2021 09/24/2021 12:1 6 AM CDT COVID - 19 Confirmed 11/22/2021 11/22/2021 022 12:16 AM CDT COVID - 19 04/16/2022 04/16/2022 04/26/2022 12:1 6 AM PAYROLL ASSISTANT COVID - 19 06/26/2023 06/26/2023 06/26/2023 3:16 PM PAYROLL ASSISTANT COVID - 19 Confirmed 06/26/2023 06/26/2023 024 12:16 AM PAYROLL ASSISTANT documented as of this encounter Care Teams Residential Aide Relationship Specialty Start Date End Date Norma Urbano APRN, ELECTRICAL HARDWARE ENGINEER [address] [place] [address] PCP - General Family Medicine 08/07/18 Sadie Pruitt, FINAL CLEANER, ELECTRICAL HARDWARE ENGINEER [address] [facility], [address] [place] [address] Nurse Practitioner Cardiology 07/20/23 documented as of this encounter
--- OUTSIDE RECORDS SUMMARY | 2024-06-17 09:03 | XMS_ITS | Encounter Summary ---
Author Organization [facility] Address [address] [place] [address] Phone Care Team Providers Care Chemist Physical Name Role Phone Urbano Norma PINEDA, PLATER HELPER Primary Care Provider [phone] Sadie Pruitt APRN, PLATER HELPER Unavailable [phone] Reason for Visit * Reason Comments Medication Refill Encounter Details Date Type Department Care Team (Late st Contact Info) Description 05/20/2020 Refill [facility] - Neurology - [place] [address] [place] [id number] Vinicio Gamez MD [address] [place] [phone] Medication Refill Social History Tobacco Use Types [...] COVID-19? 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
== END 2024-06-17 08:47 | disposition home or self-care (01) ==
PROVIDERS: PCP Nurse Practitioner Family; Visit Provider Nurse Practitioner Family
DX: H90.3 Sensorineural hearing loss, bilateral (principal); H93.13 Tinnitus, bilateral; H93.92 Unspecified disorder of left ear; R42 Dizziness and giddiness
CPT/HCPCS: 92557; 92567

== ENCOUNTER 2025-01-16 18:49 | Emergency (ER) | payer MEDICARE, MEDICAID, SELFPAY ==
[2025-01-16 18:56] VITALS: BP 148/113; PULSE 77; RESP 22; TEMP 36.6; O2SAT 100
--- NOTE | 2025-01-16 19:03 | ED_ITS ---
HPI - General Adult General Chief complaint: Wound/Laceration Stated complaint: incision on stomach poss infection Time Seen by Provider: 01/16/25 19:03 Source: patient, RN notes reviewed and old records reviewed Mode of arrival: ambulatory Limitations: no limitations History of Present Illness HPI narrative: 39-year-old female presents to the [facility] with concerns for drainage from the left lower abdomen surgical site. Had Gastric bypass 7 weeks ago. Patient reports the flu fell off 3 weeks ago, has had some yellow clear drainage over the last 3 weeks. Notified the surgeon, was told to use Hibiclens and shower twice a day. Patient reports that she had some thick yellow drainage this morning. Area is pink, blanchable. Scab in place Related Data Home Medications ?Medication ?Instructions ?Recorded ?Confirmed ?Last Taken ?Type albuterol sulfate 90 mcg/actuation inhalation 01/16/25 Unknown History aerosol inhaler aripiprazole 2 mg tablet mg 01/16/25 Unknown History atenolol 50 mg tablet mg 01/16/25 Unknown History budesonide-formoterol HFA 160 inhalation 01/16/25 Unk nown History mcg-4.5 mcg/actuation aerosol inhaler cyclobenzaprine 10 mg tablet mg 01/16/25 Unknown Hist ory duloxetine 60 mg capsule,delayed mg PO 01/16/25 Unkno wn History release montelukast 10 mg tablet mg 01/16/25 Unknown History multivitamin with minerals-ferrous tablet PO 01/16/25 Unknown History fumarate 15 mg iron tablet ondansetron HCl 4 mg tablet mg 01/16/25 Unknown Histo ry pantoprazole 40 mg tablet,delayed mg PO 01/16/25 Unkn own History release prazosin 5 mg capsule mg 01/16/25 Unknown History promethazine 25 mg tablet mg 01/16/25 Unknown History topiramate 100 mg tablet mg 01/16/25 Unknown History tramadol 50 mg tablet mg 01/16/25 Unknown History trazodone 100 mg tablet mg 01/16/25 Unknown History Allergies Allergy/AdvReac Type Severity Reaction Status Date / Time lamotrigine Allergy Intermediate blisters Verified 01/16/25 19:11 adhesvie Allergy Intermediate Hives Uncoded 01/16/25 19:11 silver products Allergy Intermediate Hives Uncoded 01/16/25 19:11 Review of Systems 2 Review of Systems: All systems reviewed & are unremarkable except as noted in HPI and below Constitutional: Constitutional: Reports no additional constitutional complaints ENT: Reports system reviewed and no additional complaints, except as documented Cardiovascular: Cardiovascular: Reports no additional cardiovascular complaints, Denies chest pain and Denies dyspnea Respiratory: Respiratory: Reports no additional respiratory complaints, Denies chest congestion, Denies cough and Denies dyspnea Musculoskeletal: Musculoskeletal: Reports no additional musculoskeletal complaints Integumentary/Breasts: Skin/Breast: Reports as per HPI PMFSH Comments At the time of my signature, I reviewed and agree with the nursing past medical, surgical, social, and family history. There is no relevant family history pertinent to the patient complaint. Exam 2 Const: General: cooperative, healthy appearing, comfortable, no acute distress, well developed, alert and well nourished Nutritional Appearance: w ell nourished and obese Orientation/consciousness: patient oriented x3 L imitations: no limitations HENMT: Head: normal to inspection Eyes: General: appearance normal, both eyes and all related structures A lignment and Position: alignment normal Neck: Neck: normal visual inspection, full ROM, no lymphadenopathy and no meningeal signs Chest: Chest palpation & inspection: normal inspection of the chest Resp: Effort & Inspection: normal respiratory effort and able to speak in complete sentences Cardio: Rate: regular rate Skin: General skin exam: normal color and no rashes or lesions noted W ounds: wounds noted Full body images: 1. Healing surgical site, pink in color, not raise, no drainage noted. Area is blanchable Neuro: General: patient oriented x3, gait normal, moves all extremities and no meningeal signs Cognition (Neuro): normal cognition Speech: normal speech Gait exam (Neuro): Normal gait present Extrem: General: normal to inspection, full ROM, capillary refill normal and normal gait Psych: Appearance: grossly normal and well kempt Mental Status: mental status grossly normal Speech and movement: Normal speech and movement present and Clear speech present Affect: normal affect Attitude: cooperative Course Course Level of Care: Express Care Visit Vital Signs Vital signs: Vital Signs Temperature 97.8 F 01/16/25 18:56 Pulse Rate 77 01/16/25 18:56 Respiratory Rate 22 H 01/16/25 18:56 Blood Pressure 148/113 H 01/16/25 18:56 Pulse Oximetry 100 01/16/25 18:56 Oxygen Delivery Room Air 01/16/25 18:56 Temperature 97.8 F 01/16/25 18:56 Pulse Rate 77 01/16/25 18:56 Respiratory Rate 22 H 01/16/25 18:56 Blood Pressure 148/113 H 01/16/25 18:56 Pulse Oximetry 100 01/16/25 18:56 Oxygen Delivery Room Air 01/16/25 18:56 Reviewed Medical Decision Making MDM Narrative Medical decision making narrative: Patient sitting comfortably in exam room. Nontoxic, vitals stable. Patient in no acute distress Patient presents for concerns for a surgical site infection. No drainage noted, area is pink, blanchable. Patient appropriate for outpatient treatment with close follow-up Discharge instructions reviewed with patient, as well as provided in writing per nursing staff. The instructions also include specific and strict return/GO TO THE ER as well as f/u information. All questions have been answered, and the patient deny any further questions with discharge and discharge plan. Some parts of this dictation were generated by voice recognition software and may contain typographical and/or grammatical inaccuracies. Differential Diagnosis Differential Diagnosis: Abscess, cellulitis, healing wound, irritation of surgical site Medical Records Medical records reviewed: Yes I reviewed the external patient's medical records. Vital Signs Vital Signs: Vital Signs Temperature 97.8 F 01/16/25 18:56 Pulse Rate 77 01/16/25 18:56 Respiratory Rate 22 H 01/16/25 18:56 Blood Pressure 148/113 H 01/16/25 18:56 Pulse Oximetry 100 01/16/25 18:56 Oxygen Delivery Room Air 01/16/25 18:56 Temperature 97.8 F 01/16/25 18:56 Pulse Rate 77 01/16/25 18:56 Respiratory Rate 22 H 01/16/25 18:56 Blood Pressure 148/113 H 01/16/25 18:56 Pulse Oximetry 100 01/16/25 18:56 Oxygen Delivery Room Air 01/16/25 18:56 Reviewed Lab Data Lab results reviewed: Yes I reviewed the patient's lab results. Labs: Reviewed Critical Care Time Critical Care Time Critical Care Time: No Discharge Plan Discharge Clinical Impression: Visit for wound check Patient Disposition: Home Condition: Stable Instructions: Antibiotic Form, Acute Wounds (DC) Additional Instructions: Keep area clean and dry. Wash with Hibiclens as your surgeon instructed. Follow-up with your surgeon on Sunday or Sunday Today your blood pressure is 148/113. It is recommended you follow-up with your primary care provider to have this rechecked within 2 weeks Patient Language: Citizen Of [place] Prescriptions: No Action cyclobenzaprine 10 mg tablet ondansetron HCl 4 mg tablet tramadol 50 mg tablet prazosin 5 mg capsule trazodone 100 mg tablet pantoprazole 40 mg tablet,delayed release (DR/EC) PO promethazine 25 mg tablet montelukast 10 mg tablet albuterol sulfate 90 mcg/actuation HFA aerosol inhaler INHALATION topiramate 100 mg tablet atenolol 50 mg tablet duloxetine 60 mg capsule,delayed release(DR/EC) PO aripiprazole 2 mg tablet budesonide-formoterol 160-4.5 mcg/actuation HFA aerosol inhaler INHALATION [id number] fumarate 15 mg iron tablet PO Follow-up/Referrals: Yolie,Norma Higuera APN [Primary Care Provider, Unknown] Time of Disposition: 19:13
== END 2025-01-16 19:34 | disposition home or self-care (01) ==
PROVIDERS: Emergency Provider Nurse Practitioner; PCP Nurse Practitioner Family
DX: Z48.815 Encounter for surgical aftercare following surgery on the digestive system (principal); Z79.899 Other long term (current) drug therapy
CPT/HCPCS: 99212; G0463